=== PATIENT | female | born 1940 | race Caucasian/White ===

== ENCOUNTER 2021-09-05 11:08 | Inpatient (IN) ==
[2021-09-05] MEDS ORDERED: cefTRIAXone SODIUM 1,000 MG/50 ML BAG IV STA (11:35)
--- NOTE | 2021-09-05 11:46 | Emergency Department Note ---
Impression & Plan Acute pyelonephritis, Bacteremia ED Provider Note NAME: DOV MCCORMACK AGE: 81 SEX: F : 1940 ARRIVES VIA: Walk-In INFORMANT: Patient, ED PROVIDER(S): Eladio Mccullough DO CHIEF COMPLAINT: Flank pain HPI: The patient is a 81-year-old female who presented to the emergency department for an evaluation of flank pain. The patient was seen in our facility yesterday for similar complaints. At that time she was diagnosed with pyelonephritis. She did have an abnormal CT. She was given a dose of Rocephin in the emergency department and started on an outpatient antibiotic. She did not take the course of antibiotic yet today. She states that her symptoms have significantly improved. She did not see her family doctor for the symptoms. The patient arrived at the emergency department after she was asked to return because of a positive blood culture for gram-negative rods. The patient states that initially she started having right-sided flank pain approximately 3 to 4 days ago. She states it was constant. She denies having any hematuria. She denies having any fever or cough. She has no chest pain. The patient states that her symptoms have significantly improved at this time. She presented with her significant other. ROS: See above HPI for pertinent positives & negatives. A total of 10 systems reviewed and were otherwise negative. PAST MEDICAL HISTORY: See Below PAST SURGICAL HISTORY: See Below FAMILY HISTORY: See Below SOCIAL HISTORY: See Below HOME MEDICATIONS: See Below ALLERGIES: See Below VITALS: See Below PHYSICAL EXAMINATION: GENERAL: Patient is awake alert in no acute distress patient is resting comfortably and showing no signs of anxiety EYES: The conjunctivae are clear. The pupils are round and reactive. EARS, NOSE, MOUTH AND THROAT: The nose is without any evidence of any deformity. NECK: The neck is nontender and supple. RESPIRATORY: Normal respiratory effort is noted there is no evidence of wheezing rhonchi or rales CARDIOVASCULAR: Regular rate and rhythm noted there no murmurs rubs or gallops normal S1 normal S2. GASTROINTESTINAL: The abdomen is soft. Abdomen is nontender. BACK: No midline tenderness was noted. There was right CVA tenderness to percussion which was mild. MUSCULOSKELETAL/EXTREMITIES: There is no evidence of gross deformity full range of motion is noted in the hips and shoulders. SKIN: Skin was warm and dry. Trace pedal edema was noted bilaterally. NEUROLOGIC: Patient is awake alert and oriented x3. Gait was steady. MEDICAL DECISION MAKING: The patient is a 81-year-old female who presented to the emergency department for an evaluation of flank pain. The patient was seen in our facility yesterday for similar complaints. At that time she was diagnosed with pyelonephritis. She was treated with IV antibiotics in the emergency department. The patient was discharged to home. She was feeling much better on subsequent reevaluation but she was called to return because of urine as well as blood cultures that appeared to be consistent with gram-negative rods. The patient was asked to return the emergency department. She was not tachycardic or hypotensive. She was treated with IV fluids and IV Zosyn in the emergency department. The patient was found to have a very elevated procalcitonin. Given the patient's presentation I did feel she would be a candidate for further inpatient management given her bacteremia. The patient was agreeable with this plan. I discussed her case with the on-call urologist as well as the on-call [facility] hospitalist. They have agreed to evaluate the patient in the emergency department for further management and disposition. Triage Nursing notes reviewed. Prior medical records reviewed Vital Signs: reviewed and remarkable for no significant abnormalities Differential diagnosis: Renal colic, UTI, appendicitis, diverticulitis, mesenteric ischemia, aortic pathology, infections, inflammatory bowel disease, PUD, biliary pathology, as well as other pathologies. ER treatment provided: See below Diagnostics interpreted by me: ECG: EKG was obtained in the emergency department. My interpretation is normal sinus rhythm at 60 bpm. There was no ectopy. Anterior T wave abnormalities were noted. This was compared to a tracing from September 042021. No changes were noted. Cardiac Monitoring: An order was placed for continuous cardiac monitoring. The monitor shows a rate of 61 bpm with sinus bradycardia. Laboratory studies: As stated above and show below. Imaging studies: See below Consultation(s): I discussed this case with Dr. Louis who is on-call for urology. I discussed this case with Sherly who is on-call for the [facility] Hospitalist group. Past Med/Surg History Medical History DJD (degenerative joint disease) Hypertension Osteoarthritis Surgical History History of appendectomy History of cataract surgery LEFT History of colonoscopy History of dilatation and curettage History of endometrial ablation History of total knee replacement left Family History Other Hypertension Social History Smoking Status: Never smoker Second Hand Exposure: No; Hx Alcohol Use: No Hx Substance Use: No Preferred Language: Cook Islander Communication Ability: Effective Community Organization Director Required: No Beliefs That Will Affect Care: None Current Living Situation: Spouse Feels Safe at Home: Yes Assistive Devices: Glasses Allergies Allergies Allergy/AdvReac Type Severity Reaction Status Date / Time No Known Allergies Allergy Verified 09/05/21 12:43 Home Meds Home Medications Medication Instructions Recorded Confirmed atenolol 50 mg tablet 50 mg PO QAM 11/27/19 09/05/21 hydrochlorothiazide 25 mg tablet 25 mg PO QAM 11/27/19 09/05/21 multivit with 1 tab PO QAM 11/27/19 09/05/21 gffxizbb-gqwu-EF-lutein 8 mg iron-400 mcg-300 mcg tablet (Centrum Silver Women) amlodipine 5 mg tablet 5 mg PO QAM 07/17/21 09/05/21 benazepril 40 mg tablet 40 mg PO DAILY 09/04/21 09/05/21 Gummy Probiotics 1 tab PO DAILY 09/05/21 09/05/21 Previous Rx's Medication Instructions Recorded Saccharomyces boulardii 250 mg 250 mg PO BID #20 cap 09/04/21 capsule (Florastor) cefdinir 300 mg capsule 300 mg PO BID 14 Days #28 cap 09/04/21 ondansetron 4 mg disintegrating 4 mg PO Q6H PRN #14 tab 09/04/21 tablet Results & Data (ED) Vital Signs Vital Signs - 24 hr 09/05/21 11:12 09/05/21 12:49 09/05/21 14:40 Temperature 36.3 C L Temperature Source Temporal Artery Scan Pulse Rate 69 Pulse Rate [Apical] 56 L 61 Pulse Rhythm [Apical] Regular Pulse Strength [Apical] Normal Respiratory Rate 20 16 20 Respiratory Effort / Characteristics Non-Labored Spontaneous Non-Labored Non-Labored Spontaneous Respiratory Depth Normal Normal Normal Respiratory Pattern Regular Regular Blood Pressure 102/64 Blood Pressure [Right Arm] 124/71 110/60 Blood Pressure Mean 76 Blood Pressure Mean [Right Arm] 88 76 Blood Pressure Position [Right Arm] Sitting Pulse Oximetry 93 94 96 Oxygen Delivery Method Room Air Room Air Room Air Sepsis Recent Fever Within 48 Hours No Sepsis New/Unexplained Change in Mental Status No Sepsis Action Taken by Nursing No Action Required Home Medications Current Medication List: was personally reviewed by me Laboratory Data Attestation: I reviewed the patient's lab results. Result diagrams: 09/05/21 11:42 09/05/21 11:42 Lab Results 09/05/21 09/05/21 09/05/21 Range/Units 11:42 11:42 11:42 WBC 10.17 (4.8-10.8) K/uL RBC 3.70 L (4.2-5.4) M/uL Hgb 11.1 L (12.0-16.0) g/dL Hct 34.5 L (37-47) % MCV 93.2 (80-100) fL MCH 30.0 (25-34) pg MCHC 32.2 (32-36) g/dL RDW Std Deviation 49.4 H (36.4-46.3) fL RDW Coeff of Suleiman 14.4 (11.5-14.5) % Plt Count 214 (130-400) K/uL MPV 10.8 H (7.4-10.4) fL Immature Gran % (Auto) 0.2 % Neut % (Auto) 84.5 % Lymph % (Auto) 5.9 % Whitley % (Auto) 8.4 % Eos % (Auto) 0.9 % Baso % (Auto) 0.1 % Neut # (Auto) 8.60 H (1.4-6.5) K/uL Lymph # (Auto) 0.60 L (1.2-3.4) K/uL Whitley # (Auto) 0.85 H (0.11-0.59) K/uL Eos # (Auto) 0.09 (0-0.5) K/uL Baso # (Auto) 0.01 (0-0.2) K/uL Immature Gran # (Auto) 0.02 (0.00-0.02) K/uL ESR (0-30) mm/hr PT 10.3 (9.0-12.0) Seconds INR 1.0 (0.9-1.1) APTT 29.6 (21.0-31.0) Seconds PTT Ratio 1.1 Sodium 136 (136-145) mmol/L Potassium 3.3 L (3.5-5.1) mmol/L Chloride 100 (98-107) mmol/L Carbon Dioxide 27 (21-32) mmol/L Anion Gap 9 (3-11) BUN 46 H (6-23) mg/dl Creatinine 1.40 H (0.6-1.2) mg/dl Est Cr Clr Drug Dosing 33.1 ml/min Est GFR ( Amer) 41.3 ml/min Est GFR (Non-Af Amer) 35.6 ml/min BUN/Creatinine Ratio 32.9 H (10-20) Glucose 212 H (70-99(Fasting)) mg/dl Lactate (0.4-2.0) mmol/L Calcium 8.2 L (8.5-10.1) mg/dl Magnesium (1.7-2.4) mg/dl Total Bilirubin 0.5 (0.2-1.0) mg/dl AST 14 (13-39) U/L ALT 16 (7-52) U/L Alkaline Phosphatase 62 (34-104) U/L C-Reactive Protein 28.97 H (0-0.5) mg/dl Total Protein 7.2 (6.0-8.3) gm/dl Albumin 3.3 L (3.4-5.0) gm/dl Globulin 3.9 (2.5-4.0) gm/dl Albumin/Globulin Ratio 0.8 L (0.9-2) Procalcitonin SARS-CoV-2, RNA, NAAT (NEGATIVE) 09/05/21 09/05/21 09/05/21 Range/Units 11:42 11:42 11:42 WBC (4.8-10.8) K/uL RBC (4.2-5.4) M/uL Hgb (12.0-16.0) g/dL Hct (37-47) % MCV (80-100) fL MCH (25-34) pg MCHC (32-36) g/dL RDW Std Deviation (36.4-46.3) fL RDW Coeff of Suleiman (11.5-14.5) % Plt Count (130-400) K/uL MPV (7.4-10.4) fL Immature Gran % (Auto) % Neut % (Auto) % Lymph % (Auto) % Whitley % (Auto) % Eos % (Auto) % Baso % (Auto) % Neut # (Auto) (1.4-6.5) K/uL Lymph # (Auto) (1.2-3.4) K/uL Whitley # (Auto) (0.11-0.59) K/uL Eos # (Auto) (0-0.5) K/uL Baso # (Auto) (0-0.2) K/uL Immature Gran # (Auto) (0.00-0.02) K/uL ESR 86 H (0-30) mm/hr PT (9.0-12.0) Seconds INR (0.9-1.1) APTT (21.0-31.0) Seconds PTT Ratio Sodium (136-145) mmol/L Potassium (3.5-5.1) mmol/L Chloride (98-107) mmol/L Carbon Dioxide (21-32) mmol/L Anion Gap (3-11) BUN (6-23) mg/dl Creatinine (0.6-1.2) mg/dl Est Cr Clr Drug Dosing ml/min Est GFR ( Amer) ml/min Est GFR (Non-Af Amer) ml/min BUN/Creatinine Ratio (10-20) Glucose (70-99(Fasting)) mg/dl Lactate 1.2 (0.4-2.0) mmol/L Calcium (8.5-10.1) mg/dl Magnesium (1.7-2.4) mg/dl Total Bilirubin (0.2-1.0) mg/dl AST (13-39) U/L ALT (7-52) U/L Alkaline Phosphatase (34-104) U/L C-Reactive Protein (0-0.5) mg/dl Total Protein (6.0-8.3) gm/dl Albumin (3.4-5.0) gm/dl Globulin (2.5-4.0) gm/dl Albumin/Globulin Ratio (0.9-2) Procalcitonin Cancelled SARS-CoV-2, RNA, NAAT (NEGATIVE) 09/05/21 09/05/21 09/05/21 Range/Units 11:42 12:05 Unknown WBC (4.8-10.8) K/uL RBC (4.2-5.4) M/uL Hgb (12.0-16.0) g/dL Hct (37-47) % MCV (80-100) fL MCH (25-34) pg MCHC (32-36) g/dL RDW Std Deviation (36.4-46.3) fL RDW Coeff of Suleiman (11.5-14.5) % Plt Count (130-400) K/uL MPV (7.4-10.4) fL Immature Gran % (Auto) % Neut % (Auto) % Lymph % (Auto) % Whitley % (Auto) % Eos % (Auto) % Baso % (Auto) % Neut # (Auto) (1.4-6.5) K/uL Lymph # (Auto) (1.2-3.4) K/uL Whitley # (Auto) (0.11-0.59) K/uL Eos # (Auto) (0-0.5) K/uL Baso # (Auto) (0-0.2) K/uL Immature Gran # (Auto) (0.00-0.02) K/uL ESR (0-30) mm/hr PT (9.0-12.0) Seconds INR (0.9-1.1) APTT (21.0-31.0) Seconds PTT Ratio Sodium (136-145) mmol/L Potassium (3.5-5.1) mmol/L Chloride (98-107) mmol/L Carbon Dioxide (21-32) mmol/L Anion Gap (3-11) BUN (6-23) mg/dl Creatinine (0.6-1.2) mg/dl Est Cr Clr Drug Dosing ml/min Est GFR ( Amer) ml/min Est GFR (Non-Af Amer) ml/min BUN/Creatinine Ratio (10-20) Glucose (70-99(Fasting)) mg/dl Lactate (0.4-2.0) mmol/L Calcium (8.5-10.1) mg/dl Magnesium 2.4 (1.7-2.4) mg/dl Total Bilirubin (0.2-1.0) mg/dl AST (13-39) U/L ALT (7-52) U/L Alkaline Phosphatase (34-104) U/L C-Reactive Protein (0-0.5) mg/dl Total Protein (6.0-8.3) gm/dl Albumin (3.4-5.0) gm/dl Globulin (2.5-4.0) gm/dl Albumin/Globulin Ratio (0.9-2) Procalcitonin 74.35 H SARS-CoV-2, RNA, NAAT NEGATIVE (NEGATIVE) Administered Medications Discontinued Medications Ceftriaxone Sodium (Rocephin) 1,000 mg in 50 mls @ 100 mls/hr IV NOW STA Stop: 09/05/21 12:04 Last Infusion: 09/05/21 12:30 Dose: 0 mls/hr Documented by: [id number] Admin: 09/05/21 12:05 Dose: 100 mls/hr Documented by: [id number] Piperacillin Sod/Tazobactam Sod (Zosyn) 4.5 gm in 120 mls @ 240 mls/hr IV NOW ONE Stop: 09/05/21 13:16 Last Infusion: 09/05/21 13:24 Dose: 0 mls/hr Documented by: [id number] Admin: 09/05/21 12:54 Dose: 240 mls/hr Documented by: [id number] Potassium Chloride (Potassium Chloride Crtab 20 Meq Tabcr) 20 meq PO NOW STA Stop: 09/05/21 13:47 Last Admin: 09/05/21 14:08 Dose: 20 meq Documented by: [id number] Discharge Plan Visit Data Chief Complaint: Abnormal Labs/Diagnostic Testing Stated Complaint: ABNORMAL LABS ED Provider: Eladio Mccullough Discharge Problem: Acute pyelonephritis, Bacteremia Patient Disposition: Being Evaluated by Hospitalist Forms Stand Alone Forms: My [facility] Prescriptions Prescriptions: No Action hydrochlorothiazide 25 mg tablet 25 mg PO QAM RF: 0 atenolol 50 mg tablet 50 mg PO QAM RF: 0 Centrum Silver Women 8 mg iron-400 mcg-300 mcg Tablet 1 tab PO QAM RF: 0 ondansetron 4 mg tablet,disintegrating 4 mg PO Q6H PRN (Reason: nausea and vomiting) Qty: 14 RF: 0 cefdinir 300 mg capsule 300 mg PO BID 14 Days Qty: 28 RF: 0 Saccharomyces boulardii [Florastor] 250 mg capsule 250 mg PO BID Qty: 20 RF: 0 benazepril 40 mg tablet 40 mg PO DAILY RF: 0 amlodipine 5 mg Tablet 5 mg PO QAM RF: 0 Gummy Probiotics 1 tab PO DAILY RF: 0 Referrals Referrals: Jose L Fuller DO [Primary Care Provider] -
[2021-09-05 11:52] LABS: Hematocrit (blood only) 34.5 % (37-47); Hemoglobin 11.1 g/dL (12.0-16.0); Mean Corpuscular Hgb Conc 32.2 g/dL (32-36); Mean Corpuscular Volume 93.2 fL (80-100); Mean Platelet Volume 10.8 fL (7.4-10.4); Platelet Count 214 K/uL (130-400); RDW Coefficient of Variation 14.4 % (11.5-14.5); RDW Standard Deviation 49.4 fL (36.4-46.3); White Blood Count 10.17 K/uL (4.8-10.8)
[2021-09-05 12:05] LABS: Partial Thromboplastin Ratio 1.1; Partial Thromboplastin Time 29.6 Seconds (21.0-31.0); Prothrombin Time 10.3 Seconds (9.0-12.0)
[2021-09-05 12:13] LABS: Albumin Globulin Ratio 0.8 (0.9-2); Albumin Level 3.3 gm/dl (3.4-5.0); BUN Creatinine Ratio 32.9 (10-20); Bilirubin,Total 0.5 mg/dl (0.2-1.0); C Reactive Protein 28.97 mg/dl (0-0.5); Calcium 8.2 mg/dl (8.5-10.1); Creatinine Clr Calc Pharmacy 33.1 ml/min; Est GFR (African American) 41.3 ml/min; Est GFR (Non-African American) 35.6 ml/min; Globulin 3.9 gm/dl (2.5-4.0); Potassium 3.3 mmol/L (3.5-5.1); Total Protein 7.2 gm/dl (6.0-8.3)
[2021-09-05 12:14] LABS: Basophils # (auto) 0.01 K/uL (0-0.2); Basophils % (auto) 0.1 %; Eosinophils # (auto) 0.09 K/uL (0-0.5); Eosinophils % (auto) 0.9 %; Immature Granulocytes # (auto) 0.02 K/uL (0.00-0.02); Immature Granulocytes % (auto) 0.2 %; Lymphocytes % (auto) 5.9 %; Monocytes # (auto) 0.85 K/uL (0.11-0.59); Monocytes % (auto) 8.4 %; Neutrophils % (auto) 84.5 %
[2021-09-05] MEDS ORDERED: PIPERACILLIN/TAZOBACTAM 4.5 GM/120 ML BAG IV ONE (12:47)
[2021-09-05] MEDS ORDERED: PIPERACILL/TAZOBAC CONSULT ACTIVE PRN (12:47)
--- NOTE | 2021-09-05 13:01 | History & Physical Report ---
Date of Service September 05, 2021 Assessment & Plan (1) Bacteremia: (2) Acute pyelonephritis: Plan: Patient is 81-year-old female with PMH HTN presented to ER today for positive blood cultures- preliminary results of gram negative bacilli. Right flank pain started 4 days ago with chills, dysuria. Seen in ER 09/04/[address] abdomen pelvis which showed possible hemorrhagic cyst rupture versus pyelonephritis and had UA suggestive of UTI. Patient was treated with Rocephin and discharged on cefdinir for probable pyelonephritis. Took 2 doses of cefdinir. Today in ER afebrile, vitals stable. No leukocytosis. Lactate WNL. CRP, ESR, procalcitonin elevated. Preliminary urine culture - gram negative bacilli In ER given Rocephin, Zosyn Continue Zosyn Repeat blood cultures Follow urine culture CBC, BMP in am (3) BABS (acute kidney injury): Plan: BUN: 46, Cr: 1.4. Baseline Cr: 1.0 IVF Hold benazepril, HCTZ and avoid other nephrotoxic agents when possible (4) Hypokalemia: Plan: K: 3.3 Replace and monitor (5) Abnormal CT of the abdomen: Plan: 09/04/21 CT ABD/PELVIS: 1. Mild right perinephric stranding. 3.5 x 2.2 x 1.1 cm crescentic intermediate attenuation focus along the lateral aspect of the superior pole of the right kidney which may be subcapsular. Adjacent intermediate attenuation 2.8 cm upper pole lesion. These are nonspecific but could reflect hemorrhagic cysts with possible cyst rupture. This could account for right flank pain. However, given apparent urothelial thickening, pyelonephritis and pyelitis are within the differential and correlation with urinalysis is recommended. In addition, a renal protocol CT in 3 months is recommended to exclude the less likely possibility of a solid renal lesion. 2. 2.2 cm left adrenal lesion. This is indeterminate although statistically benign and can be assessed on follow-up CT. 3. Several small left renal calculi. No ureteral calculi. No hydronephrosis. Consistent with acute pyelonephritis with symptoms, +blood cultures and CT scan Will need repeat CT abd/pelvis to r/o right renal lesion and recheck left adrenal lesion, as well as outpatient urology follow up (6) Hypertension: Plan: Stable Continue amlodipine, atenolol Hold benazepril, HCTZ DVT Prophylaxis Heparin SQ Full Code as per discussion with pt Follows with Dr Jose L Fuller for routine care Pt was seen and care coordinated with Dr Neal. See addendum History of Present Illness Chief Complaint: Abnormal labs Primary Care Provider: Jose L Fuller DO Patient is 81-year-old female with PMH HTN presented to ER today for recall for abnormal labs. Patient was seen in ER yesterday 09/04/2021 for right flank pain. Had CT abdomen pelvis which showed possible hemorrhagic cyst rupture versus pyelonephritis versus pyelitis and had UA suggestive of UTI. Patient was treated with Rocephin and discharged on cefdinir. Took 2 doses of cefdinir. Did not have dose today yet. Today her preliminary blood cultures positive for gram negative bacilli and was called by ER to return. Patient states 4 days ago woke up with right flank pain that was described as sharp. She also reports had slight dysuria and felt like she was not emptying her bladder completely. Maddi ent complains of shaking chills, did not take her temperature. She started taking [id number]-fjlukwy AZO and reports symptoms slightly improved. Yesterday had aching right flank pain and shaking chills again and was seen in ER. Patient states today she was feeling better, has slight right flank discomfort. She was able to complete her daily chores at the barn this morning. Patient reports 2 weeks ago had URI symptoms with congestion, cough. She reports still has slight lingering cough. Denies any shortness of breath, chest pain. Denies any known COVID-19 exposure. Has not received COVID-19 vaccination. Denies N/V/D/C, NAILS, dizziness, syncope, vision changes, neck pain, orthopnea, palpitations, sore throat, choking, otalgia, other abdominal pain, paresthesias, weakness, extremity weakness, extremity edema, rashes, hematuria, urinary frequency. Allergies Allergy/AdvReac Type Severity Reaction Status Date / Time No Known Allergies Allergy Verified 09/05/21 12:43 Home Medications Medication Instructions Recorded Confirmed Type atenolol 50 mg tablet 50 mg PO QAM 11/27/19 09/05/21 History hydrochlorothiazide 25 mg tablet 25 mg PO QAM 11/27/19 09/05/21 History multivit with 1 tab PO QAM 11/27/19 09/05/21 History pmtskego-ypgk-BS-lutein 8 mg iron-400 mcg-300 mcg tablet (Centrum Silver Women) amlodipine 5 mg tablet 5 mg PO QAM 07/17/21 09/05/21 History Saccharomyces boulardii 250 mg 250 mg PO BID #20 cap 09/04/21 09/05/21 Rx capsule (Florastor) benazepril 40 mg tablet 40 mg PO DAILY 09/04/21 09/05/21 History cefdinir 300 mg capsule 300 mg PO BID 14 Days #28 cap 09/04/21 09/05/21 Rx ondansetron 4 mg disintegrating 4 mg PO Q6H PRN #14 tab 09/04/21 09/05/21 Rx tablet Gummy Probiotics 1 tab PO DAILY 09/05/21 09/05/21 History Past Med/Surg History Medical History DJD (degenerative joint disease) Hypertension Osteoarthritis Surgical History History of appendectomy History of cataract surgery LEFT History of colonoscopy History of dilatation and curettage History of endometrial ablation History of total knee replacement left Family History Other Hypertension Social History Smoking Status: Never smoker Second Hand Exposure: No; Hx Alcohol Use: No Hx Substance Use: No Preferred Language: Slovenian Communication Ability: Effective Solid Waste Facility Operator Required: No Beliefs That Will Affect Care: Scientology Scientology Beliefs: yazidi Current Living Situation: Spouse Other Information That Helps Us Care for You: No Feels Safe at Home: Yes Safety Concerns: Feels Safe At This Time Assistive Devices: None Review of Systems Review of Systems: All systems reviewed & are unremarkable except as noted in HPI & below Physical Exam Physical Exam: General: no distress, WDWN Head: normocephalic, atraumatic Eyes: PERRL, EOM's intact, conjunctiva non-injected, anicteric ENT: normal inspection external ears, nose, mucous membranes moist Neck: supple, trachea midline Lungs: clear, no respiratory distress, no wheezing/rhonchi/rales CV: RRR, no murmur, no pretibial edema Abd: normal BS, soft, non-tender, no CVA tenderness to palpation Ext: no cyanosis, no calf tenderness Neuro: A&O x 3, no focal deficits noted, normal affect Skin: warm, dry Results & Data Results & Data ([facility]) Vital Signs (Past 12 Hours) Vital Signs Temp Pulse Pulse Resp BP BP Pulse Ox 09/05/21 12:49 56 L 16 124/71 94 09/05/21 11:12 36.3 C L 69 20 102/64 93 Laboratory Results Short CBC 09/05/21 Range/Units 11:42 WBC 10.17 (4.8-10.8) K/uL Hgb 11.1 L (12.0-16.0) g/dL Hct 34.5 L (37-47) % Plt Count 214 (130-400) K/uL BMP 09/05/21 11:42 Sodium 136 Potassium 3.3 L Chloride 100 Carbon Dioxide 27 BUN 46 H Creatinine 1.40 H Glucose 212 H Calcium 8.2 L Liver Function 09/05/21 Range/Units 11:42 Total Bilirubin 0.5 (0.2-1.0) mg/dl AST 14 (13-39) U/L ALT 16 (7-52) U/L Alkaline Phosphatase 62 (34-104) U/L Albumin 3.3 L (3.4-5.0) gm/dl Supervising Physician Co-Signing Physician Notes I have seen and examined the patient and have discussed the case with the provider above. I agree with the assessment and plan as stated. 81 yo F who is well appearing was called back to the hospital for positive blood cultures. She presented to the ER yesterday with 4 days of R flank pain and chills and was found to have acute pyelonephritis. She was treated with IV Rocephin and sent home on cefdinir. Today she is well appearing but has persistent Right flank pain. She is reporting chronic bladder prolapse to me and no dysuria or urgency symptoms at this time. She is afebrile with no evidence of sepsis. Procalcitonin and CRP are increased today and she has a normal WBC count. No repeat imaging is felt to be needed at this time. She is being treated initially with Zosyn which will narrow with culture speciation and clinical im provement. My physical exam is as above, notably her abdomen is soft, NTND and ther eis no suprapubic discomfort with palpation. She also has no R CVA tenderness to palpation. Repeat blood cultures were drawn today and would continue to check every other day until they are clear. Consider prolonged course of antibiotics and/or infectious disease consultation. Agree with holding ACEI in BABS, giving fluids and repeating BMP in am. Ángel, DO
[2021-09-05] MEDS ORDERED: POTASSIUM CHLORIDE CRTAB 20 MEQ TABCR PO STA (13:46)
[2021-09-05] MEDS ORDERED: ACETAMINOPHEN 325 MG TAB PO PRN (16:12)
[2021-09-05] MEDS ORDERED: POLYETHYLENE (MIRALAX) 17 GM PACK PO PRN (16:12)
[2021-09-05] MEDS ORDERED: ONDANSETRON INJ 2 MG/ML 2 ML VIAL IV PRN (16:12)
[2021-09-05] MEDS: SODIUM CHLORIDE 0.9% 1000ML 1,000 ML IV SCH (16:42)
[2021-09-05] MEDS: PIPERACILLIN/TAZOBACTAM 3.375 GM in DEXTROSE 5% 100 ML IV SCH (18:42)
[2021-09-05] MEDS ORDERED: POTASSIUM CHLORIDE CRTAB 20 MEQ TABCR PO ONE (21:00)
[2021-09-05 21:12] LABS: Appearance Urine Clear (Clear); Bacteria Urine Automated Negative (Negative); Bilirubin Urine Negative (Negative); Blood Urine Trace (Negative); Color Urine Yellow; Epithelial Cell Urine Auto 20-30 /lpf (0-5); Glucose Urine UA Negative (Negative); Ketones Urine Negative (Negative); Leukocyte Esterase Urine Negative (Negative); Nitrite Urine Negative (Negative); Protein Urine 1+ (Negative); Specific Gravity Urine 1.016 (1.000-1.030); Urobilinogen Urine Negative (Negative); pH Urine 6.5 (4.5-7.5)
[2021-09-05] MEDS: SACCHAROMYCES BOULARDII 250 MG CAP PO SCH (22:35)
[2021-09-05] MEDS: HEPARIN SOD 5,000 UNIT/0.5 ML VIAL SQ SCH (22:37)
[2021-09-06] MEDS: PIPERACILLIN/TAZOBACTAM 3.375 GM in DEXTROSE 5% 100 ML IV SCH ×2 (02:38→10:36)
[2021-09-06] MEDS: SODIUM CHLORIDE 0.9% 1000ML 1,000 ML IV SCH (04:16)
--- NOTE | 2021-09-06 06:59 | Electrocardiogram Report ---
Test Reason : Blood Pressure : / mmHG Vent. Rate : 060 BPM Atrial Rate : 060 BPM P-R Int : 160 ms QRS Dur : 090 ms QT Int : 422 ms P-R-T Axes : 047 009 029 degrees QTc Int : 422 ms Normal sinus rhythm Normal ECG When compared with ECG of 04-SEP-2021 08:25, Vent. rate has decreased BY 30 BPM Questionable change in QRS axis T wave amplitude has increased in Lateral leads Confirmed by Maksim Romano ([id number]) on 09/06/2021 6:59:19 AM Referred By: REFERRED SELF Confirmed By:Maksim Romano
[2021-09-06] MEDS: amLODIPine BESYLATE 5 MG TAB PO SCH (09:15)
[2021-09-06] MEDS: SACCHAROMYCES BOULARDII 250 MG CAP PO SCH ×2 (09:15→22:02)
[2021-09-06] MEDS: HEPARIN SOD 5,000 UNIT/0.5 ML VIAL SQ SCH ×2 (09:21→22:02)
[2021-09-06 09:53] LABS: Hematocrit (blood only) 36.1 % (37-47); Hemoglobin 11.6 g/dL (12.0-16.0); Mean Corpuscular Hemoglobin 30.1 pg (25-34); Mean Corpuscular Hgb Conc 32.1 g/dL (32-36); Mean Corpuscular Volume 93.8 fL (80-100); Mean Platelet Volume 10.8 fL (7.4-10.4); Platelet Count 226 K/uL (130-400); RDW Coefficient of Variation 14.7 % (11.5-14.5); RDW Standard Deviation 50.7 fL (36.4-46.3); Red Blood Count 3.85 M/uL (4.2-5.4); White Blood Count 8.31 K/uL (4.8-10.8)
[2021-09-06 11:05] LABS: BUN Creatinine Ratio 27.9 (10-20); Calcium 8.3 mg/dl (8.5-10.1); Est GFR (African American) 59.2 ml/min; Est GFR (Non-African American) 51.1 ml/min
[2021-09-06] MEDS: ATENOLOL 50 MG TABLET PO SCH (12:08)
[2021-09-06] MEDS: MULTIVITAMIN TAB PO SCH (12:08)
[2021-09-06] MEDS ORDERED: cefTRIAXone SODIUM 2,000 MG in DEXTROSE 5% 50 ML IV SCH (18:00)
--- NOTE | 2021-09-06 23:54 | Hospitalist Progress Note ---
Date of Service September 06, 2021 Assessment & Plan (1) Bacteremia: (2) Acute pyelonephritis: Plan: Patient is 81-year-old female with PMH HTN presented to ER today for positive blood cultures- preliminary results of gram negative bacilli. Right flank pain started 4 days ago with chills, dysuria. Seen in ER 09/04/[address] abdomen pelvis which showed possible hemorrhagic cyst rupture versus pyelonephritis and had UA suggestive of UTI. Patient was treated with Rocephin and discharged on cefdinir for probable pyelonephritis. Took 2 doses of cefdinir. Elevated CRP, ESR, procalcitonin elevated. Blood cx and urine cx on 09/04- gram negative bacilli In ER given Rocephin, Zosyn on admission Repeat blood cx pending Continue Zosyn Clinically stable (3) BABS (acute kidney injury): Plan: BUN: 46, Cr: 1.4. Baseline Cr: 1.0 IVF Hold benazepril, HCTZ and avoid other nephrotoxic agents when possible (4) Hypokalemia: Plan: K: 3.3 Replace and monitor (5) Abnormal CT of the abdomen: Plan: 09/04/21 CT ABD/PELVIS: 1. Mild right perinephric stranding. 3.5 x 2.2 x 1.1 cm crescentic intermediate attenuation focus along the lateral aspect of the superior pole of the right kidney which may be subcapsular. Adjacent intermediate attenuation 2.8 cm upper pole lesion. These are nonspecific but could reflect hemorrhagic cysts with possible cyst rupture. This could account for right flank pain. However, given apparent urothelial thickening, pyelonephritis and pyelitis are within the differential and correlation with urinalysis is recommended. In addition, a renal protocol CT in 3 months is recommended to exclude the less likely possibility of a solid renal lesion. 2. 2.2 cm left adrenal lesion. This is indeterminate although statistically benign and can be assessed on follow-up CT. 3. Several small left renal calculi. No ureteral calculi. No hydronephrosis. Consistent with acute pyelonephritis with symptoms, +blood cultures and CT scan Will need repeat CT abd/pelvis to r/o right renal lesion and recheck left adrenal lesion, as well as outpatient urology follow up (6) Hypertension: Plan: Stable Continue amlodipine, atenolol Hold benazepril, HCTZ DVT Prophylaxis Heparin SQ Full Code Follows with Dr Jose L Fuller for routine care Admission and Anticipated Discharge Date Admission Date: September 05, 2021 Subjective Pt was seen and examined for follow up of positive blood cx Lying in bed with no acute distress Pt said that she feels fine She is very anxious to go home Denies any chest pain, palpitation, dizziness and SOB Review of Systems Review of Systems: All systems reviewed & are unremarkable except as noted in HPI & below Physical Exam Physical Exam: General- No acute distress Head- atraumatic Eyes- PERRL, EOMI, ENT- oropharynx clear Neck- supple, no JVD Lungs- clear to auscultation Heart- regular rhythm; no murmur Abdomen- normal bowel sounds, soft, nontender Extremities- no calf tenderness Neuro- alert, oriented x 3; PERRL, EOMI; no facial palsy; no dysarthria Skin- warm & dry Results & Data Results & Data ([facility]) Vital Signs (Past 12 Hours) Vital Signs Temp Pulse Pulse Resp BP BP Pulse Ox 09/06/21 23:00 37 C 73 20 110/49 L 93 09/06/21 18:38 37.1 C 75 20 107/64 90 09/06/21 15:27 37.6 C H 69 20 120/64 90 09/06/21 14:20 72 09/06/21 12:14 36.9 C 67 20 124/68 93
[2021-09-07] MEDS: ATENOLOL 50 MG TABLET PO SCH (07:51)
[2021-09-07] MEDS: MULTIVITAMIN TAB PO SCH (07:52)
[2021-09-07] MEDS: HEPARIN SOD 5,000 UNIT/0.5 ML VIAL SQ SCH (07:52)
[2021-09-07] MEDS: amLODIPine BESYLATE 5 MG TAB PO SCH (07:52)
[2021-09-07] MEDS: SACCHAROMYCES BOULARDII 250 MG CAP PO SCH (07:53)
[2021-09-07] MEDS ORDERED: levoFLOXacin 750 MG TAB PO SCH (16:00)
--- NOTE | 2021-09-17 00:13 | Discharge Summary ---
Date of Service September 07, 2021 Admission HPI Per Admitting Provider Patient is 81-year-old female with PMH HTN presented to ER today for recall for abnormal labs. Patient was seen in ER yesterday 09/04/2021 for right flank pain. Had CT abdomen pelvis which showed possible hemorrhagic cyst rupture versus pyelonephritis versus pyelitis and had UA suggestive of UTI. Patient was treated with Rocephin and discharged on cefdinir. Took 2 doses of cefdinir. Did not have dose today yet. Today her preliminary blood cultures positive for gram negative bacilli and was called by ER to return. Patient states 4 days ago woke up with right flank pain that was described as sharp. She also reports had slight dysuria and felt like she was not emptying her bladder completely. Patient complains of shaking chills, did not take her temperature. She started taking [id number] AZO and reports symptoms slightly improved. Yesterday had aching right flank pain and shaking chills again and was seen in ER. Patient states today she was feeling better, has slight right flank discomfort. She was able to complete her daily chores at the barn this morning. Patient reports 2 weeks ago had URI symptoms with congestion, cough. She reports still has slight lingering cough. Denies any shortness of breath, chest pain. Denies any known COVID-19 exposure. Has not received COVID-19 vaccination. Denies N/V/D/C, NAILS, dizziness, syncope, vision changes, neck pain, orthopnea, palpitations, sore throat, choking, otalgia, other abdominal pain, paresthesias, weakness, extremity weakness, extremity edema, rashes, hematuria, urinary frequency. Admission Exam Per Admitting Provider General: no distress, WDWN Head: normocephalic, atraumatic Eyes: PERRL, EOM's intact, conjunctiva non-injected, anicteric ENT: normal inspection external ears, nose, mucous membranes moist Neck: supple, trachea midline Lungs: clear, no respiratory distress, no wheezing/rhonchi/rales CV: RRR, no murmur, no pretibial edema Abd: normal BS, soft, non-tender, no CVA tenderness to palpation Ext: no cyanosis, no calf tenderness Neuro: A&O x 3, no focal deficits noted, normal affect Skin: warm, dry Principal Diagnosis (1) Bacteremia: (2) Acute pyelonephritis: (3)BABS (acute kidney injury): (4) Hypokalemia: Discharge Exam General- No acute distress Head- atraumatic Eyes- PERRL, EOMI, ENT- oropharynx clear Neck- supple, no JVD Lungs- clear to auscultation Heart- regular rhythm; no murmur Abdomen- normal bowel sounds, soft, nontender Extremities- no calf tenderness Neuro- alert, oriented x 3; PERRL, EOMI; no facial palsy; no dysarthria Skin- warm & dry Discharge Data Allergies Allergy/AdvReac Type Severity Reaction Status Date / Time No Known Allergies Allergy Verified 09/05/21 12:43 Consultations 09/05/21 12:46 ED Decision to Admit Stat Hospital Course (1) Bacteremia: (2) Acute pyelonephritis: Patient is 81-year-old female with PMH HTN presented to ER today for positive blood cultures- preliminary results of gram negative bacilli. Right flank pain started 4 days ago with chills, dysuria. Seen in ER 09/04/[address] abdomen pelvis which showed possible hemorrhagic cyst rupture versus pyelonephritis and had UA suggestive of UTI. Patient was treated with Rocephin and discharged on cefdinir for probable pyelonephritis. Took 2 doses of cefdinir. Elevated CRP, ESR, procalcitonin elevated. Blood cx and urine cx on 09/04- gram negative bacilli- Ecoli In ER given Rocephin, Zosyn on admission Repeat blood cx no growth Currently on IV Zosyn, will transition to Levaquin q48H You will need a renal CT in 3 month to assess for any lesion ( your provider will order it) Complete the course of the antibiotic with Levaquin every 48 hr Seek medical attention if symptoms reoccur (3) BABS (acute kidney injury): BUN: 46, Cr: 1.4. Baseline Cr: 1.0 Check BMP in 1 week to monitor your electrolytes and renal function avoid other nephrotoxic agents when possible (4) Hypokalemia: K 4 Stable (5) Abnormal CT of the abdomen: 09/04/21 CT ABD/PELVIS: 1. Mild right perinephric stranding. 3.5 x 2.2 x 1.1 cm crescentic intermediate attenuation focus along the lateral aspect of the superior pole of the right kidney which may be subcapsular. Adjacent intermediate attenuation 2.8 cm upper pole lesion. These are nonspecific but could reflect hemorrhagic cysts with possible cyst rupture. This could account for right flank pain. However, given apparent urothelial thickening, pyelonephritis and pyelitis are within the differential and correlation with urinalysis is recommended. In addition, a renal protocol CT in 3 months is recommended to exclude the less likely possibility of a solid renal lesion. 2. 2.2 cm left adrenal lesion. This is indeterminate although statistically benign and can be assessed on follow-up CT. 3. Several small left renal calculi. No ureteral calculi. No hydronephrosis. Consistent with acute pyelonephritis with symptoms, +blood cultures and CT scan Will need repeat CT abd/pelvis to r/o right renal lesion and recheck left adrenal lesion, as well as outpatient urology follow up (6) Hypertension: Stable Continue amlodipine, atenolol Hold benazepril, HCTZ DVT Prophylaxis Heparin SQ Full Code Follows with Dr Jose L Fuller for routine care Total Time Total Time Spent Total Time Spent (In Minutes): 35 minutes Discharge Plan Discharge Items Patient Disposition: Home - Self-Care Reason For Visit: BACTEREMIA Discharge Diagnosis: (1) Bacteremia: (2) Acute pyelonephritis: (3)BABS (acute kidney injury): (4) Hypokalemia: Activity: Resume your previous activity Non-emergency contact: Primary Care Provider and Urologist Call non-emergency contact if: your temperature is above 101 Follow-up/Referrals: Jose L Fuller, DO [Primary Care Provider] - Diet: Heart Healthy Addtl Attending Provider Instructions: Follow up with your primary care provider within 1 week ( Office will call you) Follow up with urology as an outpatient You will need a renal CT in 3 month to assess for any lesion ( your provider will order it) Complete the course of the antibiotic with Levaquin every 48 hr Check BMP in 1 week to monitor your electrolytes and renal function Seek medical attention if symptoms reoccur fall precaution Pending Studies at Discharge: No Stand-Alone Forms: My [employer], Smoking Cessation Medications and DC Order Prescriptions: New levofloxacin 750 mg Tablet 750 mg PO Q2D@1100 Qty: 5 RF: 0 Continued hydrochlorothiazide 25 mg tablet 25 mg PO QAM RF: 0 atenolol 50 mg tablet 50 mg PO QAM RF: 0 Centrum Silver Women 8 mg iron-400 mcg-300 mcg Tablet 1 tab PO QAM RF: 0 Saccharomyces boulardii [Florastor] 250 mg capsule 250 mg PO BID Qty: 20 RF: 0 benazepril 40 mg tablet 40 mg PO DAILY RF: 0 amlodipine 5 mg Tablet 5 mg PO QAM RF: 0 Gummy Probiotics 1 tab PO DAILY RF: 0 Discontinued ondansetron 4 mg tablet,disintegrating 4 mg PO Q6H PRN (Reason: nausea and vomiting) Qty: 14 RF: 0 cefdinir 300 mg capsule 300 mg PO BID 14 Days Qty: 28 RF: 0 Discharge Orders: Discharge Order (Routine); Ordered 09/07/21 Ordered By: Asha Hardwick Admission Data Admit Date/Time: 09/05/21 13:06 Attending Provider: Asha Hardwick Admit Provider: [place] Neal Primary Care Provider: Jose L Fuller Other Providers: [place] Neal Other Interventions: Discharge Summary Assessment (RN) Last Done: 09/07/21 14:12
== END 2021-09-07 16:44 | disposition home or self-care (01) | DRG 872 ==
LOC: ED 11:08 → SUATTDRO 13:06 → EDINP 13:06 → 2W 20:12

== ENCOUNTER 2022-12-15 15:10 | Inpatient (IN) ==
[2022-12-15 15:58] LABS: Basophils # (auto) 0.03 K/uL (0-0.2); Basophils % (auto) 0.5 %; Eosinophils # (auto) 0.14 K/uL (0-0.50); Eosinophils % (auto) 2.4 %; Hematocrit (blood only) 37.1 % (37.0-47.0); Immature Granulocytes # (auto) 0.02 K/uL (0.01-0.20); Immature Granulocytes % (auto) 0.3 %; Lymphocytes # (auto) 1.26 K/uL (1.2-3.4); Lymphocytes % (auto) 21.5 %; Mean Corpuscular Hemoglobin 29.4 pg (25.0-34.0); Mean Corpuscular Hgb Conc 32.3 g/dL (32.0-36.0); Mean Corpuscular Volume 90.9 fL (80.0-100.0); Mean Platelet Volume 10.8 fL (9.4-12.4); Monocytes # (auto) 0.67 K/uL (0.11-0.59); Monocytes % (auto) 11.4 %; Neutrophils # (auto) 3.75 K/uL (1.40-6.50); Neutrophils % (auto) 63.9 %; Platelet Count 281 K/uL (130-400); Red Blood Count 4.08 M/uL (4.20-5.40); White Blood Count 5.87 K/ul (4.8-10.8)
[2022-12-15 16:40] LABS: Albumin Level 3.8 gm/dl (3.4-5.0); Bilirubin,Total 0.3 mg/dl (0.2-1.0); Calcium 9.3 mg/dl (8.6-10.3); Potassium 3.9 mmol/L (3.5-5.1)
[2022-12-15 16:46] LABS: BUN Creatinine Ratio 40.2 (10-20); Creatinine Clr Calc Pharmacy 46.6 ml/min; Est GFR (African American) 68.2 ml/min; Est GFR (Non-African American) 58.8 ml/min; Globulin 3.7 gm/dl (2.5-4.0); Total Protein 7.5 gm/dl (6.0-8.3)
[2022-12-15] MEDS ORDERED: AMPICILLIN/SULBACTAM SOD 3,000 MG in 0.9 % SODIUM CHLORIDE 100 ML IV STA (19:04)
[2022-12-15] MEDS ORDERED: AZITHROMYCIN 500 MG in DEXTROSE 5% 250 ML IV STA (19:04)
[2022-12-15] MEDS ORDERED: OPTIRAY 320 100ml IV ONE (20:14)
--- NOTE | 2022-12-15 21:32 | CT Scan Report ---
Exam(s): CT NECK With Contrast IV Amt: 89 ml optiray 320 EXAM: CT Neck With Intravenous Contrast CLINICAL HISTORY: Reason for exam: supporitive R lymphadenopathy. TECHNIQUE: Axial computed tomography images of the neck with intravenous contrast. Automated exposure control was utilized for the study. A dose lowering technique was utilized adhering to the principles of ALARA. CONTRAST: Patient received 89 ml optiray 320 of IV contrast COMPARISON: No relevant prior studies available. FINDINGS: Oropharynx: Unremarkable. No significant tonsillar enlargement. No peritonsillar abscess. Hypopharynx: Unremarkable. Larynx: Unremarkable. Normal epiglottis. Trachea: Unremarkable. Retropharyngeal space: Unremarkable. Submandibular/parotid glands: Unremarkable. Glands are normal in size. Thyroid: Heterogeneous thyroid gland without a focal nodule measuring larger than a centimeter. Bones/joints: No acute fracture. Soft tissues: Unremarkable. Vasculature: No acute findings. Lymph nodes: There are at least 2 solid right posterior cervical chain masses measuring 3.0 x 2.0 cm at the C2 level and 3.0 x 1.5 cm at the C3 level. These findings are concerning for malignancy until proven otherwise. Numerous abnormal low density lymph nodes are present at level 2 and level 3. Additional mildly enlarged solid lymphadenopathy is present measuring up to 1.4 cm at level 2. Lung apices: Unremarkable as visualized. IMPRESSION: 2 solid right posterior cervical chain masses with cervical low density lymph nodes concerning for a primary malignancy with lymph node involvement. Electronically signed by: Rober Kilgore M.D. 12/15/22 21:31 PM
--- NOTE | 2022-12-15 22:29 | History and Physical Report ---
DATE OF ADMISSION: 12/15/2022. CHIEF COMPLAINT: Suppurative right cervical lymph nodes, cat-scratch disease. HISTORY OF PRESENT ILLNESS: This is an 82-year-old female with past medical history significant for hyperlipidemia, hypertension, rectocele, left hydronephrosis, chronic kidney disease stage III, who presents with right-sided cervical lymphadenopathy. The patient had a barn cat scratch her around 11/09/2022 night and she went to PCP. She was treated with a 10-day course of Augmentin. Initially it was a very big pus draining wound, that resolved. Then last Wednesday, she developed a tender neck mass in the right neck region below the ear, it was big, and she went to PCP's office and was given on the first day was given higher dose of Augmentin, but next day she was changed to azithromycin and CT scan of the neck was done and also peripheral smear was done. Peripheral smear was okay and the CT scan of the neck with contrast was showing extensive right anterior, posterior cervical chain lymphadenopathy with suppurative formation large sergio conglomerate within the ipsilateral level IIB, III, and V neck, involvement of some surrounding structures(some critical) and mass effect was seen. The CAT scan was evaluated by the ENT and advised to come to the hospital for possible drainage and also for ID consult. The patient says she has one more day of azithromycin left and the swelling is much reduced since last Wednesday. Currently she has some minimal tenderness. Denies any difficulty swallowing. No fevers, no chest pain, no shortness of breath, no cough, no nausea, no abdominal pain. Normal bowel and bladder movements. No headache, no blurred visions, no runny nose, no sore throat. Currently, resting comfortably and hemodynamically stable. ALLERGIES: No known drug allergies. PAST MEDICAL HISTORY: As mentioned above. PAST SURGICAL HISTORY: Left knee arthroplasty, closure of vagina, colonoscopy, cystoscopy, left knee arthroscopy, appendectomy. MEDICATIONS: The patient is currently on amlodipine 5 mg p.o. daily, atenolol 50 mg p.o. daily, benazepril 40 mg p.o. daily, Centrum Silver 1 tablet p.o. daily, hydrochlorothiazide 25 mg p.o. daily, rosuvastatin 20 mg p.o. daily, Florastor 250 mg p.o. b.i.d. FAMILY HISTORY: Significant for no family history on file. SOCIAL HISTORY: Currently lives with her and son. No smoking, no alcohol, no drug use. REVIEW OF SYSTEMS: As per HPI. Rest of the review of systems is negative. PHYSICAL EXAMINATION: GENERAL: The patient is of moderate build, not in acute distress. VITAL SIGNS: Temperature 36.8, pulse 55, respiratory rate 19, blood pressure 145/75, oxygen 98% on room air. HEENT: Pupils equal, round and reactive to light. Oral mucosa moist. NECK: Palpable mass in the right side of the neck below the ear and mild tenderness. Neck is supple. CARDIOVASCULAR: S1 and S2 heard. Regular rate and rhythm. No murmur, no gallop. RESPIRATORY SYSTEM: Normal AP diameter. No accessory muscle use. No wheezing, no crackles. ABDOMEN: Soft, bowel sounds present, nontender, no distention. CENTRAL NERVOUS SYSTEM: Cranial nerves II-XII grossly intact, nonfocal. EXTREMITIES: No edema, no erythema. LABORATORY DATA: WBC 5.8, hemoglobin 12, hematocrit 37.1, platelets 281. Sodium 141, potassium 3.9, chloride 106, bicarb 27, BUN 37, creatinine 0.9, serum glucose 86, lactate 0.8, calcium 9.3, total bilirubin 0.3, AST 18, ALT 16, alkaline phosphatase 73. IMAGING DATA: Soft tissue neck here done today, results are pending. ASSESSMENT AND PLAN: This is an 82-year-old female who presents with cat scratch about a month ago on 11/09/2022, treated with a 10-day course of Augmentin, that was healed, but now comes with neck swelling. 1. Right cervical suppurative lymphadenopathy with some mass effects: ENT advised to come to the hospital for possible drainage. Was started on azithromycin as outpatient,and one day more left as per patient. Currently received Unasyn and azithromycin in ER, which will be continued. Will keep n.p.o. after midnight. ID consult, ENT consult. Gentle fluids. Monitor in the medical floor. 2. History of hypertension: Continue home medication of amlodipine, atenolol, benazepril, hydrochlorothiazide. Will monitor the blood pressure. 3. History of hyperlipidemia: Continue statin. 4. Chronic kidney disease stage III: Will follow the labs. Today creatinine is 0.9. 5. Deep venous thrombosis prophylaxis: Sequential compression devices for now. DISPOSITION: Closely monitor in the medical floor. Expect to discharge home and follow with family doctor. Level 1 full code. Job ID: [id number] F [facility]ITALSaritha
[2022-12-15] MEDS ORDERED: ACETAMINOPHEN 325 MG TAB PO PRN (23:53)
[2022-12-15] MEDS ORDERED: POLYETHYLENE (MIRALAX) 17 GM PACK PO PRN (23:53)
[2022-12-16] MEDS: SACCHAROMYCES BOULARDII 250 MG CAP PO SCH ×3 (00:40→20:05)
--- NOTE | 2022-12-16 01:24 | Emergency Department Note ---
Impression & Plan Mass of right side of neck, Lymphadenopathy, cervical ED Provider Note CHIEF COMPLAINT: Neck swelling HISTORY OF PRESENT ILLNESS: This 82 yo female patient with past medical history of chest pain, degenerative joint disease, recent cat scratch with hand cellulitis 1 month ago presents to the emergency department with complaints of right-sided neck swelling x1 week. The patient has been on 2 courses of amoxicillin and started azithromycin 3 days ago. Primary care physician Dr. Swift sent the patient for CT imaging of the neck due to right-sided swelling. Patient denies any other swelling including the axilla and groin. She states she has been feeling well recently in fact she was gardening this afternoon when she received a call from the nurse. CT imaging is concerning for suppurative lymphadenopathy versus abscess. ENT Dr. Moy reviewed the patient's case as an outpatient and referred the patient to the emergency department for further management. Patient denies any fevers, difficulty swallowing, shortness of breath or significant pain. She denies any recent tra carlos a to the area. REVIEW OF SYSTEMS: A review of systems was performed with positives and pertinent negatives listed in the history of present illness. 10 systems were reviewed and are otherwise negative. ALLERGIES: see below MEDICATIONS: see below PMH: see below SOCIAL HISTORY: see below DDx: Infectious etiology, reactive lymphadenopathy, malignancy, abscess among others PHYSICAL EXAM: Vital signs reviewed. General: Well-appearing 82-year-old female, in no significant distress. HEENT: No scleral icterus, PERRLA, neck supple. Atraumatic. Marked asymmetry of the anterior neck, large right sided swelling/mass. Minimally tender, no erythema. Posterior oropharynx is clear. Lymph: R cervical mass/swelling as above, NO palp lymphadenopathy to L neck, B axilla and groin. Cardiovascular: Regular rate and rhythm, no extra sounds. Pulmonary: Clear to auscultation bilaterally, normal work of breathing. Abdomen: Soft, nontender, nondistended, positive bowel sounds. Musculoskeletal: Atraumatic, no peripheral edema. Neurologic: Patient awake alert and oriented x 3, speech is clear Skin: Warm, dry, no rash EMERGENCY DEPARTMENT COURSE/MDM: This pt was evaluated and appeared to be in no distress. External medical records including imaging, ENT communications, PCP communications were reviewed. IV access was obtained and lab work was drawn. Pt was evaluated and appeared to be in no distress. PE is significant for R neck mass/swelling. Case was d/w ENT Dr. Craven who requested repeat CT as most recent previous was several days ago. She has recommended IV antibiotics, medical admission and she will consult. Pt was informed of the plan and agrees. Hospitalist service was consulted for further management. MONITORING: An order for cardiac monitoring was placed and the patient is noted to be in a normal sinus rhythm at 60 beats per minute. RADIOLOGY: CT imaging of the soft tissue neck to my interpretation reveals significant right-sided lymphadenopathy, 2 circumscribed areas concerning for abscess. Otherwise defer to radiology. DISPOSITION: Admission Past Med/Surg History Medical History (Updated 12/19/22 @ 13:01 by Yadira Melgoza MD) Abnormal CT of the abdomen Acute pyelonephritis Bacteremia DJD (degenerative joint disease) Hypertension Hypertension Hypokalemia Osteoarthritis Surgical History History of appendectomy History of cataract surgery LEFT History of colonoscopy History of dilatation and curettage History of endometrial ablation History of total knee replacement left Family History Other Hypertension Social History Smoking Status: Never smoker Second Hand Exposure: No; Do You Dip or Chew Tobacco: No; Hx Alcohol Use: No Hx Substance Use: No Preferred Language: Belarusian Communication Ability: Effective Meeting Facilitator Required: No Beliefs That Will Affect Care: None Current Living Situation: Spouse and Family Feels Safe at Home: Yes Assistive Devices: None Allergies Allergies Allergy/AdvReac Type Severity Reaction Status Date / Time No Known Allergies Allergy Verified 09/05/21 12:43 Home Meds Home Medications Medication Instructions Recorded Confirmed atenolol 50 mg tablet 50 mg PO QAM 11/27/19 09/05/21 hydrochlorothiazide 25 mg tablet 25 mg PO QAM 11/27/19 09/05/21 multivit with 1 tab PO QAM 11/27/19 09/05/21 aqulfezl-vnlj-QK-lutein 8 mg iron-400 mcg-300 mcg tablet (Centrum Silver Women) amlodipine 5 mg tablet 5 mg PO QAM 07/17/21 09/05/21 benazepril 40 mg tablet 40 mg PO DAILY 09/04/21 09/05/21 rosuvastatin 20 mg tablet 20 mg PO DAILY 12/15/22 12/15/22 Previous Rx's Medication Instructions Recorded Saccharomyces boulardii 250 mg 250 mg PO BID #40 caps 12/17/22 capsule (Florastor) amoxicillin 875 mg-potassium 1 tab PO BID #20 tabs 12/17/22 clavulanate 125 mg tablet azithromycin 500 mg tablet 500 mg PO DAILY 14 days #14 tabs 12/17/22 Results & Data (ED) Vital Signs Vital Signs - 24 hr 12/15/22 15:20 12/15/22 18:34 12/15/22 19:37 Temperature 36.8 C Temperature Source Temporal Artery Scan Pulse Rate 61 55 L Pulse Rate [Apical] 60 Pulse Rhythm [Apical] Regular Respiratory Rate 20 15 19 Respiratory Effort / Characteristics Non-Labored Spontaneous Respiratory Depth Normal Respiratory Pattern Regular Blood Pressure 147/70 H 145/75 H Blood Pressure [Left Arm] 147/95 H Blood Pressure Mean 95 98 Blood Pressure Mean [Left Arm] 112 Pulse Oximetry 97 95 98 Oxygen Delivery Method Room Air Room Air Room Air Sepsis Recent Fever Within 48 Hours No Sepsis New/Unexplained Change in Mental Status No Sepsis Action Taken by Nursing No Action Required Home Medications Current Medication List: was personally reviewed by me Laboratory Data Attestation: I reviewed the patient's lab results. 12/15/22 15:32 12/15/22 15:32 Lab Results 12/15/22 12/15/22 12/15/22 Range/Units 15:32 15:32 19:38 WBC 5.87 (4.8-10.8) K/ul RBC 4.08 L (4.20-5.40) M/uL Hgb 12.0 (12.0-16.0) g/dl Hct 37.1 (37.0-47.0) % MCV 90.9 (80.0-100.0) fL MCH 29.4 (25.0-34.0) pg MCHC 32.3 (32.0-36.0) g/dL RDW Std Deviation 47.0 H (36.4-46.3) fL RDW Coeff of Suleiman 14.0 (11.5-14.5) % Plt Count 281 (130-400) K/uL MPV 10.8 (9.4-12.4) fL Immature Gran % (Auto) 0.3 % Neut % (Auto) 63.9 % Lymph % (Auto) 21.5 % [place] % (Auto) 11.4 % Eos % (Auto) 2.4 % Baso % (Auto) 0.5 % Neut # (Auto) 3.75 (1.40-6.50) K/uL Lymph # (Auto) 1.26 (1.2-3.4) K/uL [place] # (Auto) 0.67 H (0.11-0.59) K/uL Eos # (Auto) 0.14 (0-0.50) K/uL Baso # (Auto) 0.03 (0-0.2) K/uL Immature Gran # (Auto) 0.02 (0.01-0.20) K/uL Sodium 141 (136-145) mmol/L Potassium 3.9 (3.5-5.1) mmol/L Chloride 106 (98-107) mmol/L Carbon Dioxide 27 (21-32) mmol/L Anion Gap 8 (3-11) BUN 37 H (6-23) mg/dl Creatinine 0.92 (0.6-1.2) mg/dl Est Cr Clr Drug Dosing 46.6 ml/min Est GFR ( Amer) 68.2 ml/min Est GFR (Non-Af Amer) 58.8 ml/min BUN/Creatinine Ratio 40.2 H (10-20) Glucose 86 (70-99(Fasting)) mg/dl Lactate 0.8 (0.4-2.0) mmol/L Calcium 9.3 (8.6-10.3) mg/dl Total Bilirubin 0.3 (0.2-1.0) mg/dl AST 18 (13-39) U/L ALT 16 (7-52) U/L Alkaline Phosphatase 73 (34-104) U/L Total Protein 7.5 (6.0-8.3) gm/dl Albumin 3.8 (3.4-5.0) gm/dl Globulin 3.7 (2.5-4.0) gm/dl Albumin/Globulin Ratio 1.0 (0.9-2) Administered Medications Discontinued Medications Amlodipine Besylate (Amlodipine Besylate 5 Mg Tab) 5 mg PO QAM [facility] Stop: 01/15/23 08:59 Last Admin: 12/17/22 08:49 Dose: 5 mg Documented By: Admin: 12/16/22 08:49 Dose: 5 mg Documented By: PADILLA Atenolol (Atenolol 50 Mg Tablet) [facility] [place]: 01/15/23 08:59 Last Admin: 12/17/22 08:48 Dose: 50 mg Documented By: Admin: 12/16/22 08:49 Dose: Not Given Documented By: PADILLA Enalapril Maleate (Enalapril Maleate 10 Mg Tab) 40 mg PO DAILY [facility] Stop: 01/15/23 08:59 Last Admin: 12/17/22 08:48 Dose: 40 mg Documented By: Admin: 12/16/22 08:49 Dose: 40 mg Documented By: PADILLA Hydrochlorothiazide (Hydrochlorothiazide 25 Mg Tab) 25 mg PO QAM [facility] Stop: 01/15/23 08:59 Last Admin: 12/17/22 08:49 Dose: 25 mg Documented By: Admin: 12/16/22 08:49 Dose: 25 mg Documented By: PADILLA Azithromycin 500 mg/ Dextrose 255 mls @ 127.5 mls/hr IV NOW STA Stop: 12/15/22 21:03 Last Infusion: 12/15/22 22:59 Dose: 0 mls/hr Documented By: Admin: 12/15/22 20:59 Dose: 127.5 mls/hr Documented By: VERONICA Ampicillin Sodium/Sulbactam Sodium 3,000 mg/ Sodium Chloride 108 mls @ 200 mls/hr IV NOW STA; Protocol Stop: 12/15/22 19:36 Last Infusion: 12/15/22 20:39 Dose: 0 mls/hr Documented By: Admin: 12/15/22 20:06 Dose: 200 mls/hr Documented By: VERONICA Azithromycin 500 mg/ Dextrose 255 mls @ 125 mls/hr IV Q24H JANET Stop: 12/23/22 20:59 Last Infusion: 12/16/22 22:44 Dose: 0 mls/hr Documented By: Admin: 12/16/22 20:41 Dose: 125 mls/hr Documented By: LORRI Ampicillin Sodium/Sulbactam Sodium 3,000 mg/ Sodium Chloride 108 mls @ 200 mls/hr IV Q6H JANET; Protocol Stop: 12/23/22 01:59 Last Infusion: 12/17/22 15:03 Dose: 0 mls/hr Documented By: Admin: 12/17/22 14:22 Dose: 200 mls/hr Documented By: Infusion: 12/17/22 09:40 Dose: 0 mls/hr Documented By: Admin: 12/17/22 08:54 Dose: 200 mls/hr Documented By: Infusion: 12/17/22 02:01 Dose: 0 mls/hr Documented By: TKGamal Admin: 12/17/22 01:28 Dose: 200 mls/hr Documented By: Infusion: 12/16/22 20:41 Dose: 0 mls/hr Documented By: Admin: 12/16/22 20:06 Dose: 200 mls/hr Documented By: Infusion: 12/16/22 15:40 Dose: 0 mls/hr Documented By: Admin: 12/16/22 14:40 Dose: 200 mls/hr Documented By: Infusion: 12/16/22 09:26 Dose: 0 mls/hr Documented By: Admin: 12/16/22 08:49 Dose: 200 mls/hr Documented By: Infusion: 12/16/22 02:20 Dose: 0 mls/hr Documented By: Admin: 12/16/22 01:47 Dose: 200 mls/hr Documented By: Tuberculin PPD 5 tu/ Syringe 0.1 mls @ 0.033 mls/min ID ONE ONE Stop: 12/16/22 14:18 Last Admin: 12/16/22 16:58 Dose: 0.033 mls/min Documented By: PADILLA Ioversol (Optiray 320 100ml) 89 ml IV ONCE ONE Stop: 12/15/22 20:15 Last Admin: 12/15/22 20:14 Dose: 89 ml Documented By: TOMAS Multivitamins/Minerals (Cerovite Adv Formula Tab) 1 tab PO QAM [facility] Stop: 01/15/23 08:59 Last Admin: 12/17/22 08:48 Dose: 1 tab Documented By: Admin: 12/16/22 08:49 Dose: 1 tab Documented By: PADILLA Rosuvastatin Calcium (Rosuvastatin Calcium 20 Mg Tab) 20 mg PO DAILY [facility] Stop: 01/15/23 08:59 Last Admin: 12/17/22 08:48 Dose: 20 mg Documented By: Admin: 12/16/22 08:49 Dose: 20 mg Documented By: PADILLA Saccharomyces Boulardii (Saccharomyces Boulardii 250 Mg Cap) 250 mg PO BID JANET Stop: 01/14/23 23:52 Last Admin: 12/17/22 08:48 Dose: 250 mg Documented By: Admin: 12/16/22 20:05 Dose: 250 mg Documented By: Admin: 12/16/22 08:50 Dose: 250 mg Documented By: Admin: 12/16/22 00:40 Dose: 250 mg Documented By: FR Imaging Data Radiologist's Impression: Soft Tissue Neck CT 12/15/22 19:04 Exam(s): CT NECK With Contrast IV Amt: 89 ml optiray 320 EXAM: CT Neck With Intravenous Contrast CLINICAL HISTORY: Reason for exam: supporitive R lymphadenopathy. TECHNIQUE: Axial computed tomography images of the neck with intravenous contrast. Automated exposure control was utilized for the study. A dose lowering technique was utilized adhering to the principles of ALARA. CONTRAST: Patient received 89 ml optiray 320 of IV contrast COMPARISON: No relevant prior studies available. FINDINGS: Oropharynx: Unremarkable. No significant tonsillar enlargement. No peritonsillar abscess. Hypopharynx: Unremarkable. Larynx: Unremarkable. Normal epiglottis. Trachea: Unremarkable. Retropharyngeal space: Unremarkable. Submandibular/parotid glands: Unremarkable. Glands are normal in size. Thyroid: Heterogeneous thyroid gland without a focal nodule measuring larger than a centimeter. Bones/joints: No acute fracture. Soft tissues: Unremarkable. Vasculature: No acute findings. Lymph nodes: There are at least 2 solid right posterior cervical chain masses measuring 3.0 x 2.0 cm at the C2 level and 3.0 x 1.5 cm at the C3 level. These findings are concerning for malignancy until proven otherwise. Numerous abnormal low density lymph nodes are present at level 2 and level 3. Additional mildly enlarged solid lymphadenopathy is present measuring up to 1.4 cm at level 2. Lung apices: Unremarkable as visualized. IMPRESSION: 2 solid right posterior cervical chain masses with cervical low density lymph nodes concerning for a primary malignancy with lymph node involvement. Electronically signed by: Rober Kilgore M.D. 12/15/22 21:31 PM Discharge Plan Visit Data Chief Complaint: Neck Injury/Pain Stated Complaint: REF BY DOC,HAS ABSCESS IN NECK,NEEDS DRAINING ED Provider: Yadira Melgoza Discharge Problem: Mass of right side of neck, Lymphadenopathy, cervical Patient Disposition: Admitted As Inpatient Discharge Instructions Interventions: ED Discharge Assessment Last Done: 12/15/22 23:08
[2022-12-16] MEDS: AMPICILLIN/SULBACTAM SOD 3,000 MG in 0.9 % SODIUM CHLORIDE 100 ML IV SCH ×4 (01:47→20:06)
[2022-12-16 06:13] LABS: Basophils # (auto) 0.02 K/uL (0-0.2); Basophils % (auto) 0.4 %; Eosinophils # (auto) 0.12 K/uL (0-0.50); Eosinophils % (auto) 2.3 %; Hematocrit (blood only) 34.2 % (37.0-47.0); Hemoglobin 11.4 g/dl (12.0-16.0); Immature Granulocytes # (auto) 0.02 K/uL (0.01-0.20); Immature Granulocytes % (auto) 0.4 %; Lymphocytes # (auto) 1.13 K/uL (1.2-3.4); Lymphocytes % (auto) 21.9 %; Mean Corpuscular Hemoglobin 29.9 pg (25.0-34.0); Mean Corpuscular Hgb Conc 33.3 g/dL (32.0-36.0); Mean Corpuscular Volume 89.8 fL (80.0-100.0); Mean Platelet Volume 10.8 fL (9.4-12.4); Monocytes # (auto) 0.54 K/uL (0.11-0.59); Monocytes % (auto) 10.5 %; Neutrophils # (auto) 3.32 K/uL (1.40-6.50); Neutrophils % (auto) 64.5 %; Platelet Count 224 K/uL (130-400); RDW Coefficient of Variation 14.1 % (11.5-14.5); RDW Standard Deviation 46.4 fL (36.4-46.3); Red Blood Count 3.81 M/uL (4.20-5.40); White Blood Count 5.15 K/ul (4.8-10.8)
[2022-12-16 06:22] LABS: BUN Creatinine Ratio 31.3 (10-20); Calcium 9.1 mg/dl (8.6-10.3); Creatinine Clr Calc Pharmacy 51.5 ml/min; Est GFR (African American) 77.2 ml/min; Est GFR (Non-African American) 66.6 ml/min; Magnesium 1.8 mg/dl (1.7-2.4); Potassium 3.6 mmol/L (3.5-5.1)
--- NOTE | 2022-12-16 08:42 | ENT Consultation ---
Date of Consultation December 16, 2022 Assessment & Plan (1) Cervical lymphadenopathy: Plan 82yF with bulky R cervical adenopathy x1 week. Large conglomerate of fixed/matted nodes and multiple necrotic appearing nodes on imaging and exam. History includes recent cat scratch with abscess on hand. Differential includes infectious (bartonella/atypical mycobacterial infection/superinfection of necrotic nodes) vs. malignancy. There is no sign of primary malignancy on head/neck exam. Given time course and recent exposure, I suspect this is infectious in etiology. Clinically she looks well and nontoxic. Improving on azithromycin. -OK for PO today, no plan for I+D today -Continue azithromycin and unasyn for possible superinfection -Recommend bartonella titers, PPD, toxoplasmosis titers, CMV, EBV, ESR -Will continue to follow, if stable/improving tomorrow may be able to be discharged for ongoing outpatient evaluation History of Present Illness Reason for Consultation: R cervical adenopathy Attending Physician: Ya Shah MD History of Present Illness 82yF seen for evaluation of R cervical adenopathy. Reports scratch on her R hand 2 weeks ago from a barn cat with subsequent swelling/abscess. Underwent I+D x2 by PCP and treated with amoxicillin. Then 1 week ago noted significant swelling and tenderness R neck. Started on amoxicillin 12/11/[address] neck with contrast ([employer]) showed sig R solid and cystic/necrotic lymphadenopathy with soft tissue stranding. Switched to azithromycin 12/12/22 with subsequent improvement in neck swelling. Presented to ED at advisement of PCP/Dr. Moy. Reports 75% improvement in R neck swelling and resolution of tenderness since beginning azithromycin. Otherwise feels well. No fevers, throat pain, dysphagia, odynophagia, otalgia, unexplained weight loss. No fatigue, easy bruising/bleeding, night sweats. No history of head/neck surgery or XRT. No hist ory of skin cancer. Never smoker, no chewing tobacco use. WBC normal CT neck with contrast shows per my read conglomerate of R level II/III/V nodes, some necrotic, as well as multiple enlarged level IV nodes also some necrotic. Some soft tissue infiltration. Allergies Allergy/AdvReac Type Severity Reaction Status Date / Time No Known Allergies Allergy Verified 09/05/21 12:43 Home Medications Medication Instructions Recorded Confirmed Type atenolol 50 mg tablet 50 mg PO QAM 11/27/19 09/05/21 History hydrochlorothiazide 25 mg tablet 25 mg PO QAM 11/27/19 09/05/21 History multivit with 1 tab PO QAM 11/27/19 09/05/21 History tpmkztmt-zank-VR-lutein 8 mg iron-400 mcg-300 mcg tablet (Centrum Silver Women) amlodipine 5 mg tablet 5 mg PO QAM 07/17/21 09/05/21 History Saccharomyces boulardii 250 mg 250 mg PO BID #20 caps 09/04/21 09/05/21 Rx capsule (Florastor) benazepril 40 mg tablet 40 mg PO DAILY 09/04/21 09/05/21 History rosuvastatin 20 mg tablet 20 mg PO DAILY 12/15/22 12/15/22 History Patient History Medical History Abnormal CT of the abdomen Acute pyelonephritis Bacteremia DJD (degenerative joint disease) Hypertension Hypertension Hypokalemia Osteoarthritis Surgical History History of appendectomy History of cataract surgery LEFT History of colonoscopy History of dilatation and curettage History of endometrial ablation History of total knee replacement left Family History Other Hypertension Social History Smoking Status: Never smoker Second Hand Exposure: No; Do You Dip or Chew Tobacco: No; Tobacco Cessation Education Requested by Patient: No Hx Alcohol Use: No Hx Substance Use: No Preferred Language: Luxembourgish Communication Ability: Effective Stamp Collector Required: No Beliefs That Will Affect Care: None Current Living Situation: Spouse and Family Other Information That Helps Us Care for You: No Feels Safe at Home: Yes Safety Concerns: Feels Safe At This Time Assistive Devices: Glasses Review of Systems Review of Systems: A 10-point ROS is negative except as noted above Physical Exam Physical Exam: General: The patient is well-developed, well-nourished, and in no acute distress. Head and Face: Skull: No obvious deformities Salivary glands: The parotid and submandibular glands are normal in appearance and there are no masses on palpation. Facial strength: Facial motion is symmetric and without weakness. Eyes: Eyelids: There is no periorbital edema. Conjunctiva: There is no conjunctival erythema. Extraocular muscles: Extraocular movement is normal. Nystagmus: There is no nystagmus. Ears: Right auricle: The pinna is normally formed without skin lesion or mass. Left auricle: The pinna is normally formed without skin lesion or mass. Right EAC: There is no external auditory canal erythema, edema, lesion, or mass. Left EAC: There is no external auditory canal erythema, edema, lesion, or mass. Right TM/middle ear: TM is intact without perforation, flat, and translucent. The middle ear space is clear Left TM/middle ear: TM is intact without perforation, flat, and translucent. The middle ear space is clear Hearing: Clinical speech airport engineer threshold testing is grossly normal. Nose: External: There is no gross external deformity, tenderness, or skin lesion or mass. Mucosa: Mild mucosal edema/inflammation Septum: The nasal septum is midline. Nasal cavity: Moderate bilateral ITH, no mucopurulence or polyposis Oral cavity/Oropharynx: Lips: There are no lip lesions or masses. Oral cavity: There is no inflammation, lesion, or mass involving the gums, ging bharath, floor of mouth, buccal mucosa, retromolar trigone, hard palate, soft palate, tongue. Dentition is intact. Oropharynx: There is no inflammation, lesion, or mass involving the palatine tonsils or posterior pharyngeal wall. 1+ tonsils, no masses or lesions noted Neck: General: There are no visible scars or lesions involving the neck. The trachea is midline. Lymph nodes: Bulky firm, fixed R level II/III lymphadenopathy, multiple mobile R level IV lymph nodes. Slightly tender to palpation, no overlying skin changes Thyroid: There is no visible or palpable thyroid enlargement or nodularity. Respiratory/Pulmonary: There is no stertor or stridor. There is normal respiratory effort without acute distress. Cardiovascular: There is no visible extremity edema. Skin: There are no visible lesions or masses involving the skin of the head and neck region. Neurological: Cranial nerves: Cranial nerve II is noted to be intact by grossly normal visual acuity. Cranial nerves III, IV, and are noted to be intact by normal extraocular movements. Cranial nerve VII is noted to be intact by symmetric and normal facial movement. Cranial nerve VIII is noted to be intact by a relatively normal clinical speech airport engineer threshold. Cranial nerve IX is noted to be intact by an intact gag reflex and normal palatal movement. Cranial nerve X is noted to be intact by a normal voice. Cranial nerve XI is noted to be intact by normal shoulder and head movement. Cranial nerve XII is noted to be intact by normal symmetric tongue movement. Vestibular system: The patient has a normal gait. There is no spontaneous or gaze evoked nystagmus. Psychiatric: Mental status: The patient is awake and alert. Mood/affect: The patient has a normal mood and affect. Procedure: Flexible fiberoptic laryngoscopy Indication: lymphadenopathy Details: Following the topical application of afrin and lidocaine, the flexible laryngoscope was inserted into the nasal cavity. The septum, turbinates, and nasal mucosa were normal. The nasopharynx was normal. The palatine tonsils were normal bilaterally. The base of tongue and vallecula were normal. The epiglottis, bilateral arytenoids, and bilateral aryepiglottic folds, and bilateral false vocal folds were normal. The true vocal folds were normal without masses or lesions. There was normal mobility of the true vocal folds bilaterally. The bilateral pyriform sinuses and postcricoid space was normal. There was no pooling of secretions. No aspiration or penetration was visualized. The patient tolerated the procedure well. Results & Data Vital Signs (Past 12 Hours) Vital Signs Temp Pulse Pulse Resp BP Pulse Ox O2 Del Method 12/16/22 07:46 36.9 C 56 L 18 118/67 96 Room Air 12/16/22 00:01 36.6 C 55 L 16 162/81 H 96 Room Air 12/15/22 23:02 53 L 18 121/62 95 Room Air PG Care Time/CCT Total # of Minutes Spent Total Time Spent with Patient: Total time spent is greater than 50% in coordination of care (as documented) at patient's floor/unit and/or counseling patient: Coding Level of Care Code 98978 IN/OBS CONSULT LVL 4,60M (25 - SIGNIFICANT, SEPARATELY IDENTIFIABLE ) Diagnoses Cervical lymphadenopathy R59.0 CPT Codes LARYNGOSCOPY DIAGNOSTIC FLEXIBLE - 35993 ([id number])
[2022-12-16] MEDS: CEROVITE ADV FORMULA TAB PO SCH (08:49)
[2022-12-16] MEDS: ENALAPRIL MALEATE 10 MG TAB PO SCH (08:49)
[2022-12-16] MEDS: ROSUVASTATIN CALCIUM 20 MG TAB PO SCH (08:49)
[2022-12-16] MEDS: ATENOLOL 50 MG TABLET PO SCH (08:49)
[2022-12-16] MEDS: hydroCHLOROthiazide 25 MG TAB PO SCH (08:49)
[2022-12-16] MEDS: amLODIPine BESYLATE 5 MG TAB PO SCH (08:49)
[2022-12-16] MEDS ORDERED: AMPICILLIN/SULBACTAM SOD 3,000 MG in 0.9 % SODIUM CHLORIDE 100 ML IV SCH (13:00)
[2022-12-16] MEDS ORDERED: TUBERCULIN SKIN TEST 5 TU in SYRINGE 0 ML ID ONE (14:15)
--- NOTE | 2022-12-16 15:05 | Hospitalist Progress Note ---
Date of Service December 16, 2022 Assessment & Plan (1) Cervical lymphadenopathy: Plan: History of cat bite to the dorsum of right hand about 1 month back Status post I&D for abscess locally which has been cleared Developed right cervical swelling about 2 weeks back which was initially warm and worse than now Outpatient CT scan was suggestive of extensive right anterior, posterior cervical chain adenopathy with suppuration and notable conglomerate and the patient was sent into the emergency room She was treated with 10-day course of Augmentin following initial cat scratch Has been started with intravenous Unasyn and Augmentin Appreciate ENT input and recommendation-we will have Ian-Fermin virus, CMV, toxoplasma and Bartonella antibodies, PPD and ESR checked If she feels better will be discharged home tomorrow (2) Cat bite of hand: Plan: Minimal redness but the wound healed nicely (3) Hypertension: Plan: Blood pressure is controlled DVT prophylaxis SCDs CODE STATUS Full Admission and Anticipated Discharge Date Admission Date: December 15, 2022 Subjective 12/16/2022 The patient was seen and examined in medical floor She was admitted with right-sided neck swelling History of cat bite right hand 1 month ago and has been having swelling of the right neck for the last 2 weeks No fever and or chills She feels the swelling has been improving Denies any other symptom Review of Systems Review of Systems: All systems reviewed and are unremarkable except as noted below Physical Exam Physical Exam: Sitting on a chair without any acute distress Constitutional: well developed, well nourished, + ill appearing and average body habitus Eyes: PERRL, conjunctivae normal, anicteric sclerae Neck: + abnormal visual inspection (Swelling of the right upper neck without any significant tenderness and flu) Respiratory: no respiratory distress Auscultation: lungs clear to auscultation bilaterally Cardiovascular: Rate/Rhythm: regular rate, regular rhythm and + bradycardic Heart Sounds: normal S1 and normal S2; no murmur Extremities: no edema Gastrointestinal (Abdomen): Inspection/Auscultation: normal bowel sounds; abdomen not distended Percussion/Palpation: abdomen soft; abdomen nontender Musculoskeletal: No acute arthritis involving any of the joint Neurologic: normal touch/pain/proprioception and moves all extremities; no focal motor deficits Psychiatric: A+Ox3, euthymic affect Lymphatic: no cervical or axillary lymphadenopathy Results & Data Results & Data Vital Signs (Past 12 Hours) Vital Signs Temp Pulse Resp BP Pulse Ox O2 Del Method 12/16/22 07:46 36.9 C 56 L 18 118/67 96 Room Air Laboratory Results Short CBC 12/15/22 12/16/22 Range/Units 15:32 05:27 WBC 5.87 5.15 (4.8-10.8) K/ul Hgb 12.0 11.4 L (12.0-16.0) g/dl Hct 37.1 34.2 L (37.0-47.0) % Plt Count 281 224 (130-400) K/uL BMP 12/15/22 12/16/22 15:32 05:27 Sodium 141 139 Potassium 3.9 3.6 Chloride 106 104 Carbon Dioxide 27 27 BUN 37 H 26 H Creatinine 0.92 0.83 Glucose 86 93 Calcium 9.3 9.1 Liver Function 12/15/22 Range/Units 15:32 Total Bilirubin 0.3 (0.2-1.0) mg/dl AST 18 (13-39) U/L ALT 16 (7-52) U/L Alkaline Phosphatase 73 (34-104) U/L Albumin 3.8 (3.4-5.0) gm/dl Medications Administered Current Inpatient Medications Acetaminophen (Acetaminophen 325 Mg Tab) 650 mg PO Q4H PRN PRN Reason: pain/fever Stop: 01/14/23 23:52 Amlodipine Besylate (Amlodipine Besylate 5 Mg Tab) [facility] [place] Stop: 01/15/23 08:59 Last Admin: 12/16/22 08:49 Dose: 5 mg Atenolol (Atenolol 50 Mg Tablet) [facility] [place] Stop: 01/15/23 08:59 Last Admin: 12/16/22 08:49 Dose: Not Given Enalapril Maleate (Enalapril Maleate 10 Mg Tab) 40 mg PO DAILY JANET Stop: 01/15/23 08:59 Last Admin: 12/16/22 08:49 Dose: 40 mg Hydrochlorothiazide (Hydrochlorothiazide 25 Mg Tab) 25 mg PO QAM [facility] Stop: 01/15/23 08:59 Last Admin: 12/16/22 08:49 Dose: 25 mg Azithromycin 500 mg/ Dextrose 255 mls @ 125 mls/hr IV Q24H JANET Stop: 12/23/22 20:59 Ampicillin Sodium/Sulbactam Sodium 3,000 mg/ Sodium Chloride 108 mls @ 200 mls/hr IV Q6H [facility]; Protocol Stop: 12/23/22 01:59 Last Admin: 12/16/22 14:40 Dose: 200 mls/hr Miscellaneous (Ppd Check) 1 each N/A Q48H ONE Stop: 12/18/22 14:16 Multivitamins/Minerals (Cerovite Adv Formula Tab) 1 tab PO QAM [facility] Stop: 01/15/23 08:59 Last Admin: 12/16/22 08:49 Dose: 1 tab Polyethylene Glycol (Polyethylene (Miralax) 17 Gm Pack) 17 gm PO DAILY PRN PRN Reason: Constipation Stop: 01/14/23 23:52 Rosuvastatin Calcium (Rosuvastatin Calcium 20 Mg Tab) 20 mg PO DAILY [facility] Stop: 01/15/23 08:59 Last Admin: 12/16/22 08:49 Dose: 20 mg Saccharomyces Boulardii (Saccharomyces Boulardii 250 Mg Cap) 250 mg PO BID [facility] Stop: 01/14/23 23:52 Last Admin: 12/16/22 08:50 Dose: 250 mg
[2022-12-16] MEDS ORDERED: AZITHROMYCIN 500 MG in DEXTROSE 5% 250 ML IV SCH (21:00)
[2022-12-17] MEDS: AMPICILLIN/SULBACTAM SOD 3,000 MG in 0.9 % SODIUM CHLORIDE 100 ML IV SCH ×3 (01:28→14:22)
[2022-12-17 07:01] LABS: Basophils # (auto) 0.02 K/uL (0-0.2); Basophils % (auto) 0.4 %; Eosinophils % (auto) 1.8 %; Hematocrit (blood only) 36.1 % (37.0-47.0); Immature Granulocytes # (auto) 0.02 K/uL (0.01-0.20); Immature Granulocytes % (auto) 0.4 %; Lymphocytes # (auto) 1.15 K/uL (1.2-3.4); Lymphocytes % (auto) 21.3 %; Mean Corpuscular Hemoglobin 29.9 pg (25.0-34.0); Mean Corpuscular Hgb Conc 33.2 g/dL (32.0-36.0); Mean Corpuscular Volume 89.8 fL (80.0-100.0); Mean Platelet Volume 10.3 fL (9.4-12.4); Monocytes # (auto) 0.47 K/uL (0.11-0.59); Monocytes % (auto) 8.7 %; Neutrophils # (auto) 3.65 K/uL (1.40-6.50); Neutrophils % (auto) 67.4 %; Platelet Count 239 K/uL (130-400); RDW Coefficient of Variation 13.9 % (11.5-14.5); RDW Standard Deviation 45.8 fL (36.4-46.3); Red Blood Count 4.02 M/uL (4.20-5.40); White Blood Count 5.41 K/ul (4.8-10.8)
[2022-12-17 07:30] LABS: BUN Creatinine Ratio 28.3 (10-20); Calcium 9.2 mg/dl (8.6-10.3); Creatinine Clr Calc Pharmacy 46.5 ml/min; Est GFR (African American) 68.2 ml/min; Est GFR (Non-African American) 58.8 ml/min; Potassium 3.8 mmol/L (3.5-5.1)
[2022-12-17] MEDS: CEROVITE ADV FORMULA TAB PO SCH (08:48)
[2022-12-17] MEDS: ROSUVASTATIN CALCIUM 20 MG TAB PO SCH (08:48)
[2022-12-17] MEDS: ENALAPRIL MALEATE 10 MG TAB PO SCH (08:48)
[2022-12-17] MEDS: SACCHAROMYCES BOULARDII 250 MG CAP PO SCH (08:48)
[2022-12-17] MEDS: ATENOLOL 50 MG TABLET PO SCH (08:48)
[2022-12-17] MEDS: hydroCHLOROthiazide 25 MG TAB PO SCH (08:49)
[2022-12-17] MEDS: amLODIPine BESYLATE 5 MG TAB PO SCH (08:49)
--- NOTE | 2022-12-17 10:02 | Ears,Nose,Throat Progress Note ---
Date of Service December 17, 2022 Assessment & Plan (1) Cervical lymphadenopathy: Plan 82yF with bulky R cervical adenopathy x1 week. Large conglomerate of fixed/matted nodes and multiple necrotic appearing nodes on imaging and exam. History includes recent cat scratch with abscess on hand. Differential includes infectious (bartonella/atypical mycobacterial infection/superinfection of necrotic nodes) vs. malignancy. There is no sign of primary malignancy on head/neck exam. Given time course and recent exposure, I suspect this is infectious in etiology (likely bartonella) with possible bacterial superinfection. Clinically she looks well and nontoxic. Improving on azithromycin. -OK for d/c home today from ENT standpoint with close follow up -Continue azithromycin for at least 2 weeks for presumed atypical mycobacterial/bartonella infection, and augmentin x10 days for possible superinfection -F/u bartonella titers, PPD, toxoplasmosis titers, CMV, EBV, ESR -Counseled to return to ED or call information security manager service with worsening neck swelling, pain, fevers, skin changes, dysphagia, throat pain, dysphonia, difficulty breathing -F/u next week in office for ongoing evaluation/management - [phone] Admission and Anticipated Discharge Date Admission Date: December 15, 2022 Subjective ABDON o/n. Mild tenderness to R neck. Swelling stable. No dysphagia, dysphonia, pain otherwise. Feels well. Physical Exam Physical Exam: Bulky firm conglomerate R level II/III/V nodes with multiple 1.5cm R level IV nodes, no overlying skin changes, mildly tender to palpation Managing secretions Nontoxic appearing NAD Normal voice Nonlabored respirations, no stridor Results & Data Vital Signs (Past 12 Hours) Vital Signs Temp Pulse Resp BP Pulse Ox O2 Del Method 12/17/22 07:15 36.4 C L 61 18 144/71 H 97 Room Air PG Care Time/CCT Total # of Minutes Spent Total Time Spent with Patient: Total time spent is greater than 50% in coordination of care (as documented) at patient's floor/unit and/or counseling patient: Coding Level of Care Code 31846 SUB INP/OBS CARE 2/35MIN Diagnoses Cervical lymphadenopathy R59.0
--- NOTE | 2022-12-17 15:24 | Discharge Summary ---
Discharge Summary Date of Service December 17, 2022 Notes For Next Care Provider R cervical adenopathy likely Bartonella infection 2/2 cat scratch. Discharging with close ENT f/u, oral abx, infectious work-up in process Medication Changes From Visit Azithromycin x 14 days for presumed atypical mycobacterial/bartonella infection and augmentin x10 days for possible superinfection Admission HPI Per Admitting Provider This is an 82-year-old female with past medical history significant for hyperlipidemia, hypertension, rectocele, left hydronephrosis, chronic kidney disease stage III, who presents with right-sided cervical lymphadenopathy. The patient had a barn cat scratch her around 11/09/2022 night and she went to PCP. She was treated with a 10-day course of Augmentin. Initially it was a very big pus draining wound, that resolved. Then last Wednesday, she developed a tender neck mass in the right neck region below the ear, it was big, and she went to PCP's office and was given on the first day was given higher dose of Augmentin, but next day she was changed to azithromycin and CT scan of the neck was done and also peripheral smear was done. Peripheral smear was okay and the CT scan of the neck with contrast was showing extensive right anterior, posterior cervical chain lymphadenopathy with suppurative formation large sergio conglomerate within the ipsilateral level IIB, III, and V neck, involvement of some surrounding structures(some critical) and mass effect was seen. The CAT scan was evaluated by the ENT and advised to come to the hospital for possible drainage and also for ID consult. The patient says she has one more day of azithromycin left and the swelling is much reduced since last Wednesday. Currently she has some minimal tenderness. Denies any difficulty swallowing. No fevers, no chest pain, no shortness of breath, no cough, no nausea, no abdominal pain. Normal bowel and bladder movements. No headache, no blurred visions, no runny nose, no sore throat. Currently, resting comfortably and hemodynamically stable. Admission Exam Per Admitting Provider GENERAL: The patient is of moderate build, not in acute distress. VITAL SIGNS: Temperature 36.8, pulse 55, respiratory rate 19, blood pressure 145/75, oxygen 98% on room air. HEENT: Pupils equal, round and reactive to light. Oral mucosa moist. NECK: Palpable mass in the right side of the neck below the ear and mild tenderness. Neck is supple. CARDIOVASCULAR: S1 and S2 heard. Regular rate and rhythm. No murmur, no gallop. RESPIRATORY SYSTEM: Normal AP diameter. No accessory muscle use. No wheezing, no crackles. ABDOMEN: Soft, bowel sounds present, nontender, no distention. CENTRAL NERVOUS SYSTEM: Cranial nerves II-XII grossly intact, nonfocal. EXTREMITIES: No edema, no erythema. Principal Dx & Hospital Course #1 = Principal Diagnosis (1) Cervical lymphadenopathy: (2) Cat bite of hand: (3) Hypertension: Plan This is an 82y F presenting with bulky R cervical adenopathy x1 week with history of cat bite to the dorsum of right hand about 1 month ago. Was treated with 10 d course Augmentin after initial cat scratch but subsequently developed R cervical LAD. Evaluated by ENT who suspects this is likely an infectious etiology (likely Bartonella) with possible bacterial superinfection. No sign of primary malignancy on imaging or exam. Obtained Bartonella titers, PPD, toxoplasmosis titers, CMV, EBV, ESR and will follow up with ENT in 1 week. Discharging on azithromycin for at least 2 weeks for presumed atypical mycobacterial/bartonella infection and augmentin x10 days for possible superinfection. Feeling more comfortable at this time. Counseled to return to ED if develops worsening swelling, neck pain or skin changes. Hemodynamically stable at time of discharge home. Discharge Exam Gen: WD/WN, NAD, sitting in bedside chair, A&Ox3 HEENT: Normocephalic, atraumatic, conjunctivae moist, sclerae anicteric, mucous membranes moist Neck: +Palpable mass on R side of neck extending from cervical lymph nodes to post auricular area Lung: Clear to Auscultation bilaterally, no wheezes/rales/rhonchi Heart: Regular rate, regular rhythm, no murmurs, rubs, or gallops Abdomen: Soft, NT, ND +BS x 4 Extremities: no edema Skin: Warm, no rash Updated Medication List Medication Instructions Recorded Confirmed Type atenolol 50 mg tablet 50 mg PO QAM 11/27/19 09/05/21 History hydrochlorothiazide 25 mg tablet 25 mg PO QAM 11/27/19 09/05/21 History multivit with 1 tab PO QAM 11/27/19 09/05/21 History idoyxnbd-kxhq-HO-lutein 8 mg iron-400 mcg-300 mcg tablet (Centrum Silver Women) amlodipine 5 mg tablet 5 mg PO QAM 07/17/21 09/05/21 History benazepril 40 mg tablet 40 mg PO DAILY 09/04/21 09/05/21 History rosuvastatin 20 mg tablet 20 mg PO DAILY 12/15/22 12/15/22 History Saccharomyces boulardii 250 mg 250 mg PO BID #40 caps 12/17/22 09/05/21 Rx capsule (Florastor) amoxicillin 875 mg-potassium 1 tab PO BID #20 tabs 12/17/22 Rx clavulanate 125 mg tablet azithromycin 500 mg tablet 500 mg PO DAILY 14 days #14 tabs 12/17/22 Rx Hospital Stay Data Consultations 12/15/22 19:09 ED Decision to Admit Stat 12/16/22 07:09 Consult Otolaryngology (Head and Neck) Routine 12/16/22 08:00 Consult Infectious Diseases Routine Diagnostic Imagining Performed 12/15/22 19:04 CT neck soft tissues [CT soft tissue neck w con] Stat Pending Results Patient Have Any Pending Studies at Discharge: Yes Discharge Instructions Given to Patient (Per Discharging Provider) MEDICATION CHANGES: Continue azithromycin once daily x 14 days and augmentin twice a day x 10 days for infection in neck. SUMMARY OF TEST RESULTS: You were admitted with swollen and painful R neck lymph nodes following cat scratch abscess on hand. ENT suspects this was caused by infection from cat scratch Please follow up with ENT and continue antibiotics and probiotic as below PENDING TEST RESULTS: Follow-up on Bartonella titers, PPD, toxoplasmosis titers, CMV, EBV, ESR RECOMMENDATIONS FOR FOLLOW-UP: Follow up with PCP and ENT as scheduled. Complete antibiotic in its entirety. Please continue probiotic for 2 weeks. Return to ED or call business sales consultant service ([phone]) with worsening neck swelling, pain, fevers, skin changes, dysphagia, throat pain, dysphonia, difficulty breathing Continue medication regimen as scheduled aside from changes noted above. OTHER INSTRUCTIONS: Seek medical attention if you have: * temperature above 101 * chest pain or trouble breathing * abdominal pain, nausea, vomiting * diarrhea, dark stools or bloody stools * any unanswered questions or concerns Call 911 if symptoms are severe. Please take good care of yourself. Call if you have any questions or problems. You can reach a [facility] [address] hospitalist on duty at [facility] 24 hours a day by calling [phone]. Total Time Total Time Spent Total Time Spent (In Minutes): 50 Supervising Physician Co-Signing Physician Notes Attending addendum The patient was seen and examined in medical floor She has been feeling much better and the neck swelling is slightly improved There is no pain and no problem with swallowing Denies any fever and or chills On examination Sitting on a chair without any acute distress Hemodynamically stable Right neck swelling-minimally tender, no fluctuation Chest-clear to auscultate bilaterally Heart-S1, S2 regular Abdomen-benign Extremities-negative for any edema Her labs and his imaging studies reviewed Has matted right-sided cervical adenopathy Appreciate ENT input and recommendation-we will have outpatient follow-up for possible biopsy Pending results of investigation Medically stable to be discharge Reviewed assessment and plan as outlined above by RICK Jay Dr
[2022-12-18] MEDS ORDERED: PPD CHECK ONE (14:15)
== END 2022-12-17 16:15 | disposition home or self-care (01) | DRG 869 ==
LOC: ED 15:10 → 3N 20:47

== ENCOUNTER 2023-02-15 05:34 | Inpatient (IN) ==
[2023-02-15 06:39] LABS: Appearance Urine Clear (Clear); Bacteria Urine Automated Negative (Negative); Bilirubin Urine Negative (Negative); Blood Urine Negative (Negative); Cast Urine Automated 0 /lpf (0-5); Color Urine Yellow; Epithelial Cell Urine Auto 20-30 /lpf (0-5); Glucose Urine UA Negative (Negative); Ketones Urine Negative (Negative); Leukocyte Esterase Urine Trace (Negative); Nitrite Urine Negative (Negative); Protein Urine Negative (Negative); RBC Urine Automated 0-4 /hpf (0-4); Specific Gravity Urine 1.021 (1.000-1.030); Urobilinogen Urine Negative (Negative); pH Urine 5.5 (4.5-7.5)
[2023-02-15 06:54] LABS: Basophils # (auto) 0.01 K/uL (0-0.2); Basophils % (auto) 0.1 %; Eosinophils # (auto) 0.07 K/uL (0-0.50); Eosinophils % (auto) 0.7 %; Hemoglobin 12.5 g/dl (12.0-16.0); Immature Granulocytes # (auto) 0.04 K/uL (0.01-0.20); Immature Granulocytes % (auto) 0.4 %; Lymphocytes # (auto) 1.25 K/uL (1.2-3.4); Lymphocytes % (auto) 12.8 %; Mean Corpuscular Hemoglobin 29.7 pg (25.0-34.0); Mean Corpuscular Hgb Conc 33.8 g/dL (32.0-36.0); Mean Corpuscular Volume 87.9 fL (80.0-100.0); Mean Platelet Volume 10.7 fL (9.4-12.4); Monocytes # (auto) 0.51 K/uL (0.11-0.59); Monocytes % (auto) 5.2 %; Neutrophils # (auto) 7.91 K/uL (1.40-6.50); Neutrophils % (auto) 80.8 %; Platelet Count 276 K/uL (130-400); RDW Coefficient of Variation 14.4 % (11.5-14.5); RDW Standard Deviation 45.9 fL (36.4-46.3); Red Blood Count 4.21 M/uL (4.20-5.40); White Blood Count 9.79 K/ul (4.8-10.8)
[2023-02-15 06:58] LABS: Albumin Level 3.6 gm/dl (3.4-5.0); BUN Creatinine Ratio 43.2 (10-20); Bilirubin Direct 0.2 mg/dl (0-0.2); Bilirubin,Total 0.4 mg/dl (0.2-1.0); Creatinine Clr Calc Pharmacy 58.1 ml/min; Est GFR (African American) 88.7 ml/min; Est GFR (Non-African American) 76.5 ml/min; Magnesium 1.9 mg/dl (1.7-2.4); Potassium 3.6 mmol/L (3.5-5.1); Total Protein 6.8 gm/dl (6.0-8.3)
[2023-02-15] MEDS ORDERED: SODIUM CHLORIDE 0.9% 1000ML 500 ML IV ONE (06:59)
[2023-02-15 07:02] LABS: Troponin I High Sensitivity 2.7 pg/ml (0-14)
[2023-02-15] MEDS ORDERED: ONDANSETRON INJ 2 MG/ML 2 ML VIAL IV STA (07:07)
[2023-02-15] MEDS ORDERED: MoRPHine SULFATE 4 MG/ML 1 ML CARP\\VIAL IV STA (07:07)
--- NOTE | 2023-02-15 07:10 | Emergency Department Note ---
Impression & Plan Acute pancreatitis ADMIT ED Provider Note HPI: The patient is an 82-year-old female with history of B-cell lymphoma, recently started on chemotherapy, status post port placement to the left upper chest, presents emergency department with a chief complaint of left flank pain. Patient states the pain began acutely overnight at about 12:30 AM, patient states the pain is located in her left flank area and does not radiate. Patient states she has had some increased urinary frequency as well as dysuria with the symptoms, denies any vomiting. On arrival here to the ED the patient is hypertensive at 171/86, she is otherwise hemodynamically stable, afebrile on arrival, patient is otherwise in no acute distress on my initial assessment. ROS: - Per HPI Differential Diagnosis: Kidney stone, pyelonephritis, urinary tract infection, musculoskeletal flank pain, metastatic disease/mass lesion of the left kidney, amongst other potential pathologies. *Outpatient medications and allergy history reviewed. *Pertinent external medical records reviewed. 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 Patient was given IV fluids, IV morphine and IV Zofran for symptoms. Lab work was obtained and shows no leukocytosis, hemoglobin is stable, platelet count is within normal limits, CMP does not show any critical findings, lactic acid is normal, there is no transaminitis, bilirubin is normal, troponin is negative, EKG does not show any ischemic changes. Urinalysis was obtained and does not show any convincing evidence of infection. CT imaging of the abdomen pelvis was obtained and shows evidence of possible mild acute pancreatitis. Lipase was therefore added to the patient's lab work. I do feel she will require admission. Case was discussed with the on-call hospitalist service for [facility] [place], case was discussed with the on-call midlevel provider, Nallely, and the patient was accepted for inpatient admission and further management. Lipase did result following our discussion and is rosita vated at 1484 consistent with acute pancreatitis. Patient was admitted in stable condition for further management. Consultants: [facility] [address] hospitalist service, Dr. Bonilla Disposition discussion held by myself with: Patient Diagnosis: 1. Acute pancreatitis 2. Elevated lipase 3. Left flank pain, acute 4. History of lymphoma, currently on chemotherapy Disposition: Admission Barry Thompson DO Emergency Medicine Past Med/Surg History Medical History (Updated 02/15/23 @ 13:05 by Barry Thompson DO) CKD (chronic kidney disease), stage III Per records DJD (degenerative joint disease) Hyperlipemia Per records Hypertension Lymphoma B-cell Osteoarthritis Surgical History (Updated 02/12/23 @ 10:11 by John Chavira DO, BARI) History of appendectomy History of biopsy lymph node of neck History of bladder surgery repaired of prolapsed bladder with mesh History of cataract surgery left/right History of colonoscopy History of dilatation and curettage History of endometrial ablation History of total knee replacement left Port-A-Cath in place (01/27/23) Insertion Access Port with Fluoroscopy(Left) - John Chavira DO, FACS Family History Mother Cancer Hypertension Other No family history of adverse response to anesthesia Social History Smoking Status: Never smoker Second Hand Exposure: No; Do You Dip or Chew Tobacco: No; Hx Alcohol Use: No Hx Substance Use: No Preferred Language: Slovenian Communication Ability: Effective Measurement Superintendent Required: No Beliefs That Will Affect Care: None marital status: Current Living Situation: Alone current occupational status: retired How many Children do You have: 5 Feels Safe at Home: Yes during the past year weight has: remained stable Assistive Devices: Glasses Allergies Allergies Allergy/AdvReac Type Severity Reaction Status Date / Time phenazopyridine [From Azo] Allergy Severe Anaphylaxis Verified 02/12/23 09:24 Home Meds Home Medications Medication Instructions Recorded Confirmed atenolol 50 mg tablet 50 mg PO QAM 11/27/19 02/15/23 hydrochlorothiazide 25 mg tablet 25 mg PO QAM 11/27/19 02/15/23 omxyrzym-kpkm-dofe 8 mg-folic 400 1 tab PO QAM 11/27/19 02/15/23 mcg-K 50 mcg-lutein 300 mcg tablet (Centrum Silver Women) amlodipine 5 mg tablet 5 mg PO QAM 07/17/21 02/15/23 benazepril 40 mg tablet 40 mg PO QAM 09/04/21 02/15/23 rosuvastatin 20 mg tablet 20 mg PO QAM 12/15/22 02/15/23 allopurinol 300 mg tablet 300 mg PO DAILY 02/15/23 02/15/23 estradiol 0.01% (0.1 mg/gram) See Rx Instructions .Route .COMPLEX 02/15/23 02/15/23 vaginal cream ondansetron HCl 8 mg tablet 8 mg PO Q6H PRN Nausea/vomiting 02/15/23 02/15/23 prednisone 20 mg tablet See Rx Instructions .Route .COMPLEX 02/15/23 02/15/23 prochlorperazine maleate 10 mg 10 mg PO Q6H PRN Nausea/vomiting 02/15/23 02/15/23 tablet Results & Data (ED) Vital Signs Vital Signs - 24 hr 02/15/23 05:38 02/15/23 06:08 02/15/23 05:35 Temperature 36.6 C Temperature Source Oral Pulse Rate 58 L 52 L Pulse Rate [Apical] 57 L Pulse Rate from SpO2 Sensor Pulse Rhythm Regular Pulse Rhythm [Apical] Regular Pulse Strength Normal Respiratory Rate 16 14 Respiratory Effort / Characteristics Non-Labored Spontaneous Non-Labored Respiratory Depth Normal Normal Respiratory Pattern Regular Blood Pressure 171/86 H Blood Pressure [Right Arm] 144/73 H Blood Pressure Mean 114 Blood Pressure Mean [Right Arm] 96 Blood Pressure Position Sitting Pulse Oximetry 96 96 Oxygen Delivery Method Room Air Sepsis Recent Fever Within 48 Hours No Sepsis New/Unexplained Change in Mental Status No Sepsis Action Taken by Nursing No Action Required 02/15/23 05:46 02/15/23 06:19 02/15/23 08:04 Temperature Temperature Source Pulse Rate 51 L 54 L Pulse Rate [Apical] Pulse Rate from SpO2 Sensor 49 L 54 L Pulse Rhythm Pulse Rhythm [Apical] Pulse Strength Respiratory Rate 15 13 Respiratory Effort / Characteristics Respiratory Depth Respiratory Pattern Blood Pressure 144/73 H 146/80 H Blood Pressure [Right Arm] Blood Pressure Mean 96 102 Blood Pressure Mean [Right Arm] Blood Pressure Position Pulse Oximetry 93 97 Oxygen Delivery Method Room Air Sepsis Recent Fever Within 48 Hours Sepsis New/Unexplained Change in Mental Status Sepsis Action Taken by Nursing 02/15/23 09:45 02/15/23 10:00 02/15/23 11:02 Temperature Temperature Source Pulse Rate 48 L 54 L 52 L Pulse Rate [Apical] Pulse Rate from SpO2 Sensor 53 L Pulse Rhythm Pulse Rhythm [Apical] Pulse Strength Respiratory Rate 14 16 Respiratory Effort / Characteristics Respiratory Depth Respiratory Pattern Blood Pressure 134/68 137/76 Blood Pressure [Right Arm] Blood Pressure Mean 90 96 Blood Pressure Mean [Right Arm] Blood Pressure Position Pulse Oximetry 97 94 Oxygen Delivery Method Room Air Sepsis Recent Fever Within 48 Hours Sepsis New/Unexplained Change in Mental Status Sepsis Action Taken by Nursing Laboratory Data 02/15/23 06:15 02/15/23 06:15 Lab Results 02/15/23 02/15/23 02/15/23 Range/Units 06:15 06:15 06:15 WBC 9.79 (4.8-10.8) K/ul RBC 4.21 (4.20-5.40) M/uL Hgb 12.5 (12.0-16.0) g/dl Hct 37.0 (37.0-47.0) % MCV 87.9 (80.0-100.0) fL MCH 29.7 (25.0-34.0) pg MCHC 33.8 (32.0-36.0) g/dL RDW Std Deviation 45.9 (36.4-46.3) fL RDW Coeff of Suleiman 14.4 (11.5-14.5) % Plt Count 276 (130-400) K/uL MPV 10.7 (9.4-12.4) fL Immature Gran % (Auto) 0.4 % Neut % (Auto) 80.8 % Lymph % (Auto) 12.8 % Ida % (Auto) 5.2 % Eos % (Auto) 0.7 % Baso % (Auto) 0.1 % Neut # (Auto) 7.91 H (1.40-6.50) K/uL Lymph # (Auto) 1.25 (1.2-3.4) K/uL Ida # (Auto) 0.51 (0.11-0.59) K/uL Eos # (Auto) 0.07 (0-0.50) K/uL Baso # (Auto) 0.01 (0-0.2) K/uL Immature Gran # (Auto) 0.04 (0.01-0.20) K/uL Sodium 135 L (136-145) mmol/L Potassium 3.6 (3.5-5.1) mmol/L Chloride 98 (98-107) mmol/L Carbon Dioxide 32 (21-32) mmol/L Anion Gap 5 (3-11) BUN 32 H (6-23) mg/dl Creatinine 0.74 (0.6-1.2) mg/dl Est Cr Clr Drug Dosing 58.1 ml/min Est GFR ( Amer) 88.7 ml/min Est GFR (Non-Af Amer) 76.5 ml/min BUN/Creatinine Ratio 43.2 H (10-20) Glucose 112 H (70-99(Fasting)) mg/dl Lactate 1.1 (0.4-2.0) mmol/L Calcium 9.0 (8.6-10.3) mg/dl Magnesium 1.9 (1.7-2.4) mg/dl Total Bilirubin 0.4 (0.2-1.0) mg/dl Direct Bilirubin 0.2 (0-0.2) mg/dl AST 17 (13-39) U/L ALT 29 (7-52) U/L Alkaline Phosphatase 75 (34-104) U/L Troponin I High Sens 2.7 (0-14) pg/ml Total Protein 6.8 (6.0-8.3) gm/dl Albumin 3.6 (3.4-5.0) gm/dl Lipase (11-82) U/L Procalcitonin (0-0.5) ng/ml Urine Color Urine Appearance (Clear) Urine pH (4.5-7.5) Ur Specific [place] (1.000-1.030) Urine Protein (Negative) Urine Glucose (UA) (Negative) Urine Ketones (Negative) Urine Blood (Negative) Urine Nitrite (Negative) Urine Bilirubin (Negative) Urine Urobilinogen (Negative) Ur Leukocyte Esterase (Negative) Urine WBC (Auto) (0-5) /hpf Urine RBC (Auto) (0-4) /hpf U Hyaline Cast (Auto) (0-5) /lpf U Epithel Cells (Auto) (0-5) /lpf Urine Bacteria (Auto) (Negative) SARS-CoV-2, RNA, NAAT (NEGATIVE) 02/15/23 02/15/23 02/15/23 Range/Units 06:15 06:15 06:15 WBC (4.8-10.8) K/ul RBC (4.20-5.40) M/uL Hgb (12.0-16.0) g/dl Hct (37.0-47.0) % MCV (80.0-100.0) fL MCH (25.0-34.0) pg MCHC (32.0-36.0) g/dL RDW Std Deviation (36.4-46.3) fL RDW Coeff of Suleiman (11.5-14.5) % Plt Count (130-400) K/uL MPV (9.4-12.4) fL Immature Gran % (Auto) % Neut % (Auto) % Lymph % (Auto) % Ida % (Auto) % Eos % (Auto) % Baso % (Auto) % Neut # (Auto) (1.40-6.50) K/uL Lymph # (Auto) (1.2-3.4) K/uL Ida # (Auto) (0.11-0.59) K/uL Eos # (Auto) (0-0.50) K/uL Baso # (Auto) (0-0.2) K/uL Immature Gran # (Auto) (0.01-0.20) K/uL Sodium (136-145) mmol/L Potassium (3.5-5.1) mmol/L Chloride (98-107) mmol/L Carbon Dioxide (21-32) mmol/L Anion Gap (3-11) BUN (6-23) mg/dl Creatinine (0.6-1.2) mg/dl Est Cr Clr Drug Dosing ml/min Est GFR ( Amer) ml/min Est GFR (Non-Af Amer) ml/min BUN/Creatinine Ratio (10-20) Glucose (70-99(Fasting)) mg/dl Lactate (0.4-2.0) mmol/L Calcium (8.6-10.3) mg/dl Magnesium (1.7-2.4) mg/dl Total Bilirubin (0.2-1.0) mg/dl Direct Bilirubin (0-0.2) mg/dl AST (13-39) U/L ALT (7-52) U/L Alkaline Phosphatase (34-104) U/L Troponin I High Sens (0-14) pg/ml Total Protein (6.0-8.3) gm/dl Albumin (3.4-5.0) gm/dl Lipase 1484 H (11-82) U/L Procalcitonin 0.06 (0-0.5) ng/ml Urine Color Yellow Urine Appearance Clear (Clear) Urine pH 5.5 (4.5-7.5) Ur Specific [place] 1.021 (1.000-1.030) Urine Protein Negative (Negative) Urine Glucose (UA) Negative (Negative) Urine Ketones Negative (Negative) Urine Blood Negative (Negative) Urine Nitrite Negative (Negative) Urine Bilirubin Negative (Negative) Urine Urobilinogen Negative (Negative) Ur Leukocyte Esterase Trace H (Negative) Urine WBC (Auto) 1-5 (0-5) /hpf Urine RBC (Auto) 0-4 (0-4) /hpf U Hyaline Cast (Auto) 0 (0-5) /lpf U Epithel Cells (Auto) 20-30 H (0-5) /lpf Urine Bacteria (Auto) Negative (Negative) SARS-CoV-2, RNA, NAAT (NEGATIVE) 02/15/23 Range/Units Unknown WBC (4.8-10.8) K/ul RBC (4.20-5.40) M/uL Hgb (12.0-16.0) g/dl Hct (37.0-47.0) % MCV (80.0-100.0) fL MCH (25.0-34.0) pg MCHC (32.0-36.0) g/dL RDW Std Deviation (36.4-46.3) fL RDW Coeff of Suleiman (11.5-14.5) % Plt Count (130-400) K/uL MPV (9.4-12.4) fL Immature Gran % (Auto) % Neut % (Auto) % Lymph % (Auto) % Ida % (Auto) % Eos % (Auto) % Baso % (Auto) % Neut # (Auto) (1.40-6.50) K/uL Lymph # (Auto) (1.2-3.4) K/uL Ida # (Auto) (0.11-0.59) K/uL Eos # (Auto) (0-0.50) K/uL Baso # (Auto) (0-0.2) K/uL Immature Gran # (Auto) (0.01-0.20) K/uL Sodium (136-145) mmol/L Potassium (3.5-5.1) mmol/L Chloride (98-107) mmol/L Carbon Dioxide (21-32) mmol/L Anion Gap (3-11) BUN (6-23) mg/dl Creatinine (0.6-1.2) mg/dl Est Cr Clr Drug Dosing ml/min Est GFR ( Amer) ml/min Est GFR (Non-Af Amer) ml/min BUN/Creatinine Ratio (10-20) Glucose (70-99(Fasting)) mg/dl Lactate (0.4-2.0) mmol/L Calcium (8.6-10.3) mg/dl Magnesium (1.7-2.4) mg/dl Total Bilirubin (0.2-1.0) mg/dl Direct Bilirubin (0-0.2) mg/dl AST (13-39) U/L ALT (7-52) U/L Alkaline Phosphatase (34-104) U/L Troponin I High Sens (0-14) pg/ml Total Protein (6.0-8.3) gm/dl Albumin (3.4-5.0) gm/dl Lipase (11-82) U/L Procalcitonin (0-0.5) ng/ml Urine Color Urine Appearance (Clear) Urine pH (4.5-7.5) Ur Specific [place] (1.000-1.030) Urine Protein (Negative) Urine Glucose (UA) (Negative) Urine Ketones (Negative) Urine Blood (Negative) Urine Nitrite (Negative) Urine Bilirubin (Negative) Urine Urobilinogen (Negative) Ur Leukocyte Esterase (Negative) Urine WBC (Auto) (0-5) /hpf Urine RBC (Auto) (0-4) /hpf U Hyaline Cast (Auto) (0-5) /lpf U Epithel Cells (Auto) (0-5) /lpf Urine Bacteria (Auto) (Negative) SARS-CoV-2, RNA, NAAT NEGATIVE (NEGATIVE) Administered Medications Discontinued Medications Sodium Chloride (Nss 1000ml) 500 mls @ 999 mls/hr IV .Q31M ONE Stop: 02/15/23 07:29 Last Infusion: 02/15/23 08:05 Dose: 0 mls/hr Documented By: Admin: 02/15/23 07:21 Dose: 999 mls/hr Documented By: NOEL Sodium Chloride (Nss) 500 mls @ 999 mls/hr IV .Q31M ONE Stop: 02/15/23 11:19 Last Infusion: 02/15/23 11:52 Dose: 0 mls/hr Documented By: Admin: 02/15/23 11:07 Dose: 999 mls/hr Documented By: DESMOND Ioversol (Optiray 320 100ml) 94 ml IV ONCE ONE Stop: 02/15/23 07:57 Last Admin: 02/15/23 07:57 Dose: 94 ml Documented By: LARY Morphine Sulfate (Morphine Sulfate 4 Mg/Ml 1 Ml Carp\Vial) 4 mg IV NOW STA Stop: 02/15/23 07:08 Last Admin: 02/15/23 07:17 Dose: 4 mg Documented By: NOEL Ondansetron HCl (Ondansetron Inj 2 Mg/Ml 2 Ml Vial) 4 mg IV NOW STA Stop: 02/15/23 07:08 Last Admin: 02/15/23 07:16 Dose: 4 mg Documented By: NOEL Imaging Data Radiologist's Impression: Chest X-Ray 02/15/23 05:46 XR chest 1V portable HISTORY: 82 years-old Female Sepsis acute sepsis COMPARISON: 02/03/2023 TECHNIQUE: AP view of the chest FINDINGS: Cardiomediastinal and hilar silhouettes are unchanged. Left IJ Sybyka-n-Byfv catheter appears to be in stable positioning. No pneumothorax, pleural effusion, airspace consolidation or pulmonary edema. Bones appear grossly intact. Degenerative changes of the shoulders and spine. IMPRESSION: No acute process. ACT 112: Negative or not required by law. The above report was generated using voice recognition software. It may contain grammatical, syntax or spelling errors. Electronically signed by: Vic Us M.D. 02/15/2023 7:15 AM Abdomen/Pelvis CT 02/15/23 06:[address] WITH IV CONTRAST CT DOSE: 1139.72 mGy.cm HISTORY: Acute left-sided flank pain in a patient with history of lymphoma L flank pain TECHNIQUE: Multiaxial CT images of the abdomen and pelvis were performed following the IV administration of 94 cc of Optiray, A dose lowering technique was utilized adhering to the principles of ALARA. COMPARISON STUDY: PET/CT 02/03/2023, CT abdomen and pelvis 09/04/2021 FINDINGS: Mild cardiomegaly. Trace pericardial effusion. Clear lung bases. No pneumatosis or pneumoperitoneum. Unremarkable spleen, right adrenal gland, gallbladder and liver with scattered hepatic cysts. Patency of the hepatic and portal veins. Stable 2 cm soft tissue attenuating left adrenal gland lesion w hich is likely benign. There is mild interstitial and peripancreatic edema. No definite associated pancreatic ductal dilation or mass identified. 10 mm peripherally calcified structures in the abdominal left upper quadrant on image 77 series 3 suggestive of a splenic artery aneurysm. No peripancreatic fluid collections. Bilateral renal cysts are again noted including a 5.1 cm left-sided renal sinus cyst. Cortical thinning with areas of parenchymal scarring again noted within the left kidney. There are a few punctate nonobstructing calculi noted within the inferior pole left kidney. Symmetric enhancement of the kidneys with mild urothelial thickening of the left ureteropelvic junction. Unremarkable urinary bladder and uterus. Atherosclerosis of the aorta. No lymphadenopathy. Tiny hiatal hernia. No bowel obstruction or bowel wall thickening. Colonic diverticulosis. Moderate colonic fecal retention. No CT evidence of acute appendicitis. There are a few stool-filled loops of small bowel noted within the lower abdomen and pelvis. Bones appear intact. No acute fracture. IMPRESSION: 1. Mild acute interstitial edematous pancreatitis. 2. No acute peripancreatic fluid collections. 3. No pathologic lymphadenopathy identified. 4. Colonic diverticulosis. 5. Additional findings as above. ACT 112: Negative or not required by law. The above report was generated using voice recognition software. It may contain grammatical, syntax or spelling errors. Electronically signed by: Vic Us M.D. 02/15/2023 8:39 AM Discharge Plan Visit Data Chief Complaint: Back Injury/Pain Stated Complaint: POSSIBLE KIDNEY INFECTION - LEFT SIDE ED Provider: Barry Thompson Discharge Problem: Acute pancreatitis Forms Stand Alone Forms: [facility] Prescriptions Prescriptions: No Action hydrochlorothiazide 25 mg tablet 25 mg PO QAM atenolol 50 mg tablet 50 mg PO QAM Centrum Silver Women 8 mg iron-400 mcg-300 mcg Tablet 1 tab PO QAM benazepril 40 mg tablet 40 mg PO QAM ondansetron HCl 8 mg Tablet 8 mg PO Q6H PRN (Reason: Nausea/vomiting) prochlorperazine maleate 10 mg Tablet 10 mg PO Q6H PRN (Reason: Nausea/vomiting) prednisone 20 mg tablet See Rx Instructions .ROUTE .COMPLEX Rx Instructions: Using per oncology recommendations allopurinol 300 mg tablet 300 mg PO DAILY estradiol 0.01 % (0.1 mg/gram) cream See Rx Instructions .ROUTE .COMPLEX Rx Instructions: APPLY PEA SIZED AMOUNT (0.5 GM) VAGINALLY EVERY OTHER NIGHT. amlodipine 5 mg Tablet 5 mg PO QAM rosuvastatin 20 mg tablet 20 mg PO QAM Referrals Referrals: Jose L Fuller, [Primary Care Provider] - Acute pancreatitis Qualifiers: Pancreatitis type: other Acute pancreatitis complication: unspecified Qualified Code(s): K85.80 - Other acute pancreatitis without necrosis or infection
--- NOTE | 2023-02-15 07:16 | XRay Report ---
XR chest 1V portable HISTORY: 82 years-old Female Sepsis acute sepsis COMPARISON: 02/03/2023 TECHNIQUE: AP view of the chest FINDINGS: Cardiomediastinal and hilar silhouettes are unchanged. Left IJ Kldhqm-c-Jygy catheter appears to be i n stable positioning. No pneumothorax, pleural effusion, airspace consolidation or pulmonary edema. B ones appear grossly intact. Degenerative changes of the shoulders and spine. IMPRESSION: No acute process. ACT 112: Negative or not required by law. The above report was generated using voice recognition software. It may contain grammatical, syntax o r spelling errors. Electronically signed by: Vic Us M.D. 02/15/2023 7:15 AM
[2023-02-15] MEDS ORDERED: OPTIRAY 320 100ml IV ONE (07:56)
--- NOTE | 2023-02-15 08:40 | CT Scan Report ---
ABDOMEN AND PELVIS CT WITH IV CONTRAST CT DOSE: 1139.72 mGy.cm HISTORY: Acute left-sided flank pain in a patient with history of lymphoma L flank pain TECHNIQUE: Multiaxial CT images of the abdomen and pelvis were performed following the IV administrat ion of 94 cc of Optiray, A dose lowering technique was utilized adhering to the principles of ALARA. COMPARISON STUDY: PET/CT 02/03/2023, CT abdomen and pelvis 09/04/2021 FINDINGS: Mild cardiomegaly. Trace pericardial effusion. Clear lung bases. No pneumatosis or pneumope ritoneum. Unremarkable spleen, right adrenal gland, gallbladder and liver with scattered hepatic cyst s. Patency of the hepatic and portal veins. Stable 2 cm soft tissue attenuating left adrenal gland le luis which is likely benign. There is mild interstitial and peripancreatic edema. No definite associa bryant pancreatic ductal dilation or mass identified. 10 mm peripherally calcified structures in the abd ominal left upper quadrant on image 77 series 3 suggestive of a splenic artery aneurysm. No peripancr eatic fluid collections. Bilateral renal cysts are again noted including a 5.1 cm left-sided renal sinus cyst. Cortical thinni ng with areas of parenchymal scarring again noted within the left kidney. There are a few punctate no nobstructing calculi noted within the inferior pole left kidney. Symmetric enhancement of the kidneys with mild urothelial thickening of the left ureteropelvic junction. Unremarkable urinary bladder and uterus. Atherosclerosis of the aorta. No lymphadenopathy. Tiny hiatal hernia. No bowel obstruction or bowel wall thickening. Colonic diverticulosis. Moderate c olonic fecal retention. No CT evidence of acute appendicitis. There are a few stool-filled loops of s mall bowel noted within the lower abdomen and pelvis. Bones appear intact. No acute fracture. IMPRESSION: 1. Mild acute interstitial edematous pancreatitis. 2. No acute peripancreatic fluid collections. 3. No pathologic lymphadenopathy identified. 4. Colonic diverticulosis. 5. Additional findings as above. ACT 112: Negative or not required by law. The above report was generated using voice recognition software. It may contain grammatical, syntax o r spelling errors. Electronically signed by: Vic Us M.D. 02/15/2023 8:39 AM
[2023-02-15] MEDS ORDERED: SODIUM CHLORIDE 0.9% 500 ML IV ONE (10:49)
--- NOTE | 2023-02-15 11:02 | History & Physical Report ---
Date of Service February 15, 2023 Assessment & Plan (1) Acute pancreatitis: Plan: This is an 82 y/o female recently diagnosed with B-cell lymphoma who just started chemotherapy four days ago who presented to the ED this morning with abrupt onset of severe left flank/left thoracic pain. Work-up in the ED revealed a lipase >[address] with mild acute interstitial edematous pancreatitis. Pt was symptomatically improved after receiving IV morphine, Zofran and fluids but symptoms were slowly recurring and etiology of pancreatitis is not entirely clear so pt was referred for admission. Case discussed with pt's oncologist - while some of her chemo drugs do have case reports of pancreatitis, it would be a rare adverse effect so she recommended work-up for other causes as well. Pt is also on HCTZ, which has been associated with pancreatitis so we will hold this for now. - Observe overnight for symptom control - Check RUQ ultrasound - of note, LFTs are normal at this point - Consult GI for additional recommendations - Pain control with IV Dilaudid - Zofran for anti-emetic - Continue IVF at 125 cc/hr - Bowel rest overnight - re-eval in AM - Labs in the AM - CBC, BMP, Mg, LFTs, and lipase - Lipid panel in AM to evaluate for hypertriglyceridemia (2) B-cell lymphoma: (3) Hypertension: (4) Hyperlipemia: (5) CKD (chronic kidney disease), stage III: Plan Continue other home medications as appropriate Pt seen and reviewed with collaborating physician, Dr. Bonilla. Plan of care discussed and as outlined above. Code Status: Full Code DVT Prophylaxis: Bautista Rizo PA-C History of Present Illness Chief Complaint: left flank pain Primary Care Provider: Jose L Fuller DO This is an 82 y/o female with history of HTN, hyperlipidemia, CKD3, left hydronephrosis, and recently diagnosed B-cell lymphoma who presented to the ED for severe left flank pain. She reports that she was woken up around 12:30 am today by pain in left flank/thoracic area - describes as a deep ache with associated abdominal discomfort/bloating and nausea. No vomiting. Pain has gradually increased in severity. Pt has a history of issues with left kidney so initially attributed to this but has not had similar pain previously. Unable to find a comfortable position. Due to pain's severity and worsening, she thought it best to come to the ED for evaluation. Initially pain was 8/10 on arrival but improved with pain meds to 3/10. Now seems to be slowly worsening again. She has not eaten yet today or taken any medications. Last BM was today around 5:30 am and was normal for her. Denies melena or hematochezia. No urinary changes. No prior history of pancreatitis. Of note, she started chemo with R- CHOP mini on of last week. She has overall felt well until today after her first dose of chemo. Has not required the anti-emetics. Energy level has been good - able to keep up with usual activity level. Appetite has been good - reports feeling hungry at present. Last meal was dinner yesterday - hamburger, [id number], broccoli salad, and strawberry shortcake. Tried some Ritz crackers for the pain but didn't help. Allergies Allergy/AdvReac Type Severity Reaction Status Date / Time phenazopyridine [From Azo] Allergy Severe Anaphylaxis Verified 02/12/23 09:24 Home Medications Medication Instructions Recorded Confirmed Type atenolol 50 mg tablet 50 mg PO QAM 11/27/19 02/15/23 History hydrochlorothiazide 25 mg tablet 25 mg PO QAM 11/27/19 02/15/23 History ubssbnra-lcpy-gahy 8 mg-folic 400 1 tab PO QAM 11/27/19 02/15/23 History mcg-K 50 mcg-lutein 300 mcg tablet (Centrum Silver Women) amlodipine 5 mg tablet 5 mg PO QAM 07/17/21 02/15/23 History benazepril 40 mg tablet 40 mg PO QAM 09/04/21 02/15/23 History rosuvastatin 20 mg tablet 20 mg PO QAM 12/15/22 02/15/23 History allopurinol 300 mg tablet 300 mg PO DAILY 02/15/23 02/15/23 History estradiol 0.01% (0.1 mg/gram) See Rx Instructions .Route .COMPLEX 02/15/23 02/15/23 History vaginal cream ondansetron HCl 8 mg tablet 8 mg PO Q6H PRN Nausea/vomiting 02/15/23 02/15/23 History prednisone 20 mg tablet See Rx Instructions .Route .COMPLEX 02/15/23 02/15/23 History prochlorperazine maleate 10 mg 10 mg PO Q6H PRN Nausea/vomiting 02/15/23 02/15/23 History tablet Past Med/Surg History Medical History (Updated 02/15/23 @ 13:32 by Candis Rizo PA-C) Cat bite of hand Cervical lymphadenopathy CKD (chronic kidney disease), stage III Per records DJD (degenerative joint disease) Hyperlipemia Per records Hypertension Lymphoma B-cell Mass of right side of neck Osteoarthritis Surgical History History of appendectomy History of biopsy lymph node of neck History of bladder surgery repaired of prolapsed bladder with mesh History of cataract surgery left/right History of colonoscopy History of dilatation and curettage History of endometrial ablation History of total knee replacement left Port-A-Cath in place (01/27/23) Insertion Access Port with Fluoroscopy(Left) - John Chavira, , FACS Family History Mother Cancer Hypertension Other No family history of adverse response to anesthesia Social History Smoking Status: Never smoker Second Hand Exposure: No; Do You Dip or Chew Tobacco: No; Hx Alcohol Use: No Hx Substance Use: No Preferred Language: Kazakh Communication Ability: Effective 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 Beliefs That Will Affect Care: None marital status: Current Living Situation: Alone current occupational status: retired How many Children do You have: 5 Feels Safe at Home: Yes during the past year weight has: remained stable Assistive Devices: Glasses Review of Systems Review of Systems: All systems reviewed & are unremarkable except as noted in HPI & below Constitutional: + sweats and + fatigue Eyes: no diplopia and no worsening vision Ear, Nose, Mouth, Throat: no nasal congestion, no nasal discharge and no sore throat Respiratory: no cough and no dyspnea Cardiovascular: no chest pain, no palpitations, no lightheadedness and no syncope Gastrointestinal: as per Subjective / HPI; no diarrhea/loose stools and no blood in stools Genitourinary: no dysuria and no hematuria Musculoskeletal: no neck pain, no joint pain and no myalgia Integumentary: no rash and no yellowing of the skin Neurologic: no seizure-like activity, no dizziness and no headache(s) Psychiatric: no depression and no anxiety Physical Exam Constitutional: well developed and well nourished; no acute distress Eyes: + anicteric sclerae ENMT: external ear and nose normal, oropharynx normal Neck: trachea midline Respiratory: no respiratory distress and no labored breathing Auscultation: lungs clear to auscultation bilaterally; no rales, no rhonchi and no wheezes Cardiovascular: Rate/Rhythm: regular rhythm and + bradycardic Vessels: dorsalis pedis pulses present and radial pulses present Extremities: no pedal edema Gastrointestinal (Abdomen): Inspection/Auscultation: + abdomen distended (mildly) and normal bowel sounds Percussion/Palpation: + abdomen tender (lateral LUQ and left flank) and abdomen soft; no guarding Musculoskeletal: Head/Neck/Chest: normocephalic, head atraumatic and neck supple Skin: no jaundice Neurologic: moves all extremities; no focal motor deficits and not confused Psychiatric: A+Ox3, euthymic affect Results & Data Results & Data Vital Signs (Past 12 Hours) Vital Signs Temp Pulse Pulse Resp BP BP Pulse Ox 02/15/23 10:00 54 L 14 134/68 97 02/15/23 09:45 48 L 02/15/23 08:04 54 L 13 146/80 H 97 02/15/23 06:19 51 L 15 144/73 H 93 02/15/23 05:46 02/15/23 05:35 57 L 14 144/73 H 96 02/15/23 06:08 52 L 02/15/23 05:38 36.6 C 58 L 16 171/86 H 96 O2 Del Method 02/15/23 10:00 02/15/23 09:45 02/15/23 08:04 02/15/23 06:19 02/15/23 05:46 Room Air 02/15/23 05:35 02/15/23 06:08 02/15/23 05:38 Room Air Laboratory Results Laboratory Results - last 24 hr 02/15/23 02/15/23 02/15/23 06:15 06:15 06:15 WBC 9.79 RBC 4.21 Hgb 12.5 Hct 37.0 MCV 87.9 MCH 29.7 MCHC 33.8 RDW Std Deviation 45.9 RDW Coeff of Suleiman 14.4 Plt Count 276 MPV 10.7 Immature Gran % (Auto) 0.4 Neut % (Auto) 80.8 Lymph % (Auto) 12.8 [place] % (Auto) 5.2 Eos % (Auto) 0.7 Baso % (Auto) 0.1 Neut # (Auto) 7.91 H Lymph # (Auto) 1.25 [place] # (Auto) 0.51 Eos # (Auto) 0.07 Baso # (Auto) 0.01 Immature Gran # (Auto) 0.04 Sodium 135 L Potassium 3.6 Chloride 98 Carbon Dioxide 32 Anion Gap 5 BUN 32 H Creatinine 0.74 Est Cr Clr Drug Dosing 58.1 Est GFR ( Amer) 88.7 Est GFR (Non-Af Amer) 76.5 BUN/Creatinine Ratio 43.2 H Glucose 112 H Lactate 1.1 Calcium 9.0 Magnesium 1.9 Total Bilirubin 0.4 Direct Bilirubin 0.2 AST 17 ALT 29 Alkaline Phosphatase 75 Troponin I High Sens 2.7 Total Protein 6.8 Albumin 3.6 Lipase Procalcitonin Urine Color Urine Appearance Urine pH Ur Specific [place] Urine Protein Urine Glucose (UA) Urine Ketones Urine Blood Urine Nitrite Urine Bilirubin Urine Urobilinogen Ur Leukocyte Esterase Urine WBC (Auto) Urine RBC (Auto) U Hyaline Cast (Auto) U Epithel Cells (Auto) Urine Bacteria (Auto) SARS-CoV-2, RNA, NAAT 02/15/23 02/15/23 02/15/23 06:15 06:15 06:15 WBC RBC Hgb Hct MCV MCH MCHC RDW Std Deviation RDW Coeff of Suleiman Plt Count MPV Immature Gran % (Auto) Neut % (Auto) Lymph % (Auto) [place] % (Auto) Eos % (Auto) Baso % (Auto) Neut # (Auto) Lymph # (Auto) [place] # (Auto) Eos # (Auto) Baso # (Auto) Immature Gran # (Auto) Sodium Potassium Chloride Carbon Dioxide Anion Gap BUN Creatinine Est Cr Clr Drug Dosing Est GFR ( Amer) Est GFR (Non-Af Amer) BUN/Creatinine Ratio Glucose Lactate Calcium Magnesium Total Bilirubin Direct Bilirubin AST ALT Alkaline Phosphatase Troponin I High Sens Total Protein Albumin Lipase Pending Procalcitonin 0.06 Urine Color Yellow Urine Appearance Clear Urine pH 5.5 Ur Specific [place] 1.021 Urine Protein Negative Urine Glucose (UA) Negative Urine Ketones Negative Urine Blood Negative Urine Nitrite Negative Urine Bilirubin Negative Urine Urobilinogen Negative Ur Leukocyte Esterase Trace H Urine WBC (Auto) 1-5 Urine RBC (Auto) 0-4 U Hyaline Cast (Auto) 0 U Epithel Cells (Auto) 20-30 H Urine Bacteria (Auto) Negative SARS-CoV-2, RNA, NAAT 02/15/23 Unknown WBC RBC Hgb Hct MCV MCH MCHC RDW Std Deviation RDW Coeff of Suleiman Plt Count MPV Immature Gran % (Auto) Neut % (Auto) Lymph % (Auto) [place] % (Auto) Eos % (Auto) Baso % (Auto) Neut # (Auto) Lymph # (Auto) [place] # (Auto) Eos # (Auto) Baso # (Auto) Immature Gran # (Auto) Sodium Potassium Chloride Carbon Dioxide Anion Gap BUN Creatinine Est Cr Clr Drug Dosing Est GFR ( Amer) Est GFR (Non-Af Amer) BUN/Creatinine Ratio Glucose Lactate Calcium Magnesium Total Bilirubin Direct Bilirubin AST ALT Alkaline Phosphatase Troponin I High Sens Total Protein Albumin Lipase Procalcitonin Urine Color Urine Appearance Urine pH Ur Specific [place] Urine Protein Urine Glucose (UA) Urine Ketones Urine Blood Urine Nitrite Urine Bilirubin Urine Urobilinogen Ur Leukocyte Esterase Urine WBC (Auto) Urine RBC (Auto) U Hyaline Cast (Auto) U Epithel Cells (Auto) Urine Bacteria (Auto) SARS-CoV-2, RNA, NAAT NEGATIVE Diagnostic Findings Chest X-Ray 02/15/23 05:46 XR chest 1V portable HISTORY: 82 years-old Female Sepsis acute sepsis COMPARISON: 02/03/2023 TECHNIQUE: AP view of the chest FINDINGS: Cardiomediastinal and hilar silhouettes are unchanged. Left IJ [id number]-[id number] catheter appears to be in stable positioning. No pneumothorax, pleural effusion, airspace consolidation or pulmonary edema. Bones appear grossly intact. Degenerative changes of the shoulders and spine. IMPRESSION: No acute process. Abdomen/Pelvis CT 02/15/23 06:[address] WITH IV CONTRAST CT DOSE: 1139.72 mGy.cm HISTORY: Acute left-sided flank pain in a patient with history of lymphoma L flank pain TECHNIQUE: Multiaxial CT images of the abdomen and pelvis were performed following the IV administration of 94 cc of Optiray, A dose lowering technique was utilized adhering to the principles of ALARA. COMPARISON STUDY: PET/CT 02/03/2023, CT abdomen and pelvis 09/04/2021 FINDINGS: Mild cardiomegaly. Trace pericardial effusion. Clear lung bases. No pneumatosis or pneumoperitoneum. Unremarkable spleen, right adrenal gland, gallbladder and liver with scattered hepatic cysts. Patency of the hepatic and portal veins. Stable 2 cm soft tissue attenuating left adrenal gland lesion which is likely benign. There is mild interstitial and peripancreatic edema. No definite associated pancreatic ductal dilation or mass identified. 10 mm peripherally calcified structures in the abdominal left upper quadrant on image 77 series 3 suggestive of a splenic artery aneurysm. No peripancreatic fluid collections. Bilateral renal cysts are again noted including a 5.1 cm left-sided renal sinus cyst. Cortical thinning with areas of parenchymal scarring again noted within the left kidney. There are a few punctate nonobstructing calculi noted within the inferior pole left kidney. Symmetric enhancement of the kidneys with mild urothelial thickening of the left ureteropelvic junction. Unremarkable urinary bladder and uterus. Atherosclerosis of the aorta. No lymphadenopathy. Tiny hiatal hernia. No bowel obstruction or bowel wall thickening. Colonic diverticulosis. Moderate colonic fecal retention. No CT evidence of acute appendicitis. There are a few stool-filled loops of small bowel noted within the lower abdomen and pelvis. Bones appear intact. No acute fracture. IMPRESSION: 1. Mild acute interstitial edematous pancreatitis. 2. No acute peripancreatic fluid collections. 3. No pathologic lymphadenopathy identified. 4. Colonic diverticulosis. 5. Additional findings as above. Medications Administered Discontinued Medications Sodium Chloride (Nss 1000ml) 500 mls @ 999 mls/hr IV .Q31M ONE Stop: 02/15/23 07:29 Last Infusion: 02/15/23 08:05 Dose: 0 mls/hr Documented By: Admin: 02/15/23 07:21 Dose: 999 mls/hr Documented By: NOEL Ioversol (Optiray 320 100ml) 94 ml IV ONCE ONE Stop: 02/15/23 07:57 Last Admin: 02/15/23 07:57 Dose: 94 ml Documented By: LARY Morphine Sulfate (Morphine Sulfate 4 Mg/Ml 1 Ml Carp\Vial) 4 mg IV NOW STA Stop: 02/15/23 07:08 Last Admin: 02/15/23 07:17 Dose: 4 mg Documented By: NOEL Ondansetron HCl (Ondansetron Inj 2 Mg/Ml 2 Ml Vial) 4 mg IV NOW STA Stop: 02/15/23 07:08 Last Admin: 02/15/23 07:16 Dose: 4 mg Documented By: NOEL Supervising Physician Co-Signing Physician Notes Patient was seen and examined independently at bedside. Chart reviewed. Case discussed with Candis CABRERA and agree with the documentation above. In summary, this is a 82 year old female with h/o HTN, recent diagnosis of B cell lymphoma and started on R-CHOP 4 days back presented to the ED with sudden onset left flank pain overnight and admitted with acute pancreatitis as evidenced by CT imaging and lipase.. CT abdomen/pelvis with mild acute interstitial edematous pancreatitis. right upper quadrant ultrasound with no acute cholecystitis but 4 mm echogenic focus within the gallbladder-polyp favored versus gallstone. No new medication. No trauma. No other issues. Pain controlled with pain meds in ED. On exam, elderly female, lying comfortably in bed, not in acute distress. Chest clear, left-sided port noted, heart sounds normal, abd with mild left flank tenderness otherwise unremarkable, neuro nonfocal, no LE edema. Patient's acute pancreatitis likely related to her chemo medication. Oncology has been updated. Continue IVF, bowel rest, analgesics, GI eval. Consider advancing diet as tolerated tomorrow if continues to improve. Rest as per the note above. (1) Acute pancreatitis Acute pancreatitis complication: unspecified Pancreatitis type: other Qualified Code(s): K85.80 - Other acute pancreatitis without necrosis or infection
--- NOTE | 2023-02-15 11:30 | Electrocardiogram Report ---
Test Reason : Blood Pressure : / mmHG Vent. Rate : 053 BPM Atrial Rate : 053 BPM P-R Int : 156 ms QRS Dur : 084 ms QT Int : 422 ms P-R-T Axes : 049 001 028 degrees QTc Int : 395 ms Sinus bradycardia with Premature atrial complexes Nonspecific ST abnormality Anterolateral leads Abnormal ECG When compared with ECG of 05-SEP-2021 11:59, Premature atrial complexes are now Present Nonspecific ST abnormality now present Confirmed by Hussain Escobar ([id number]) on 02/15/2023 11:30:33 AM Referred By: Confirmed By:Hussain Escobar
[2023-02-15] MEDS ORDERED: HYDROmorphone INJ 0.5 MG/0.5 ML SYR IV PRN (13:24)
[2023-02-15] MEDS ORDERED: ONDANSETRON INJ 2 MG/ML 2 ML VIAL IV PRN (13:27)
--- NOTE | 2023-02-15 15:20 | Ultrasound Report ---
US liver CLINICAL HISTORY: Pancreatitis. COMPARISON STUDY: CT of the abdomen and pelvis February 15, 2023. FINDINGS: Liver morphology is normal. Multiple hepatic cysts are noted. A few echogenic hepatic lesio ns likely reflect hemangiomas. These correspond to stable liver lesions when comparing to earlier CT of September 04, 2021. There is no biliary ductal dilatation. The pancreas is partially obscured by cortney wel gas. Visualized portions of the pancreas appear heterogeneous. No peripancreatic fluid collection is present. There is no gallbladder wall thickening. There is a 4 mm echogenic focus within the gall bladder. There is no gallbladder wall thickening. There is no right hydronephrosis. A few right renal cysts are present. IMPRESSION: 1. 4 mm echogenic focus within the gallbladder. A polyp is favored however a gallstone could appear s imilar. No evidence for acute cholecystitis. 2. Heterogeneity of the pancreas, better depicted on CT performed earlier today. This is consistent w ith acute pancreatitis. 3. No biliary ductal dilatation. ACT 112: Negative or not required by law. Electronically signed by: Al Schaeffer M.D. 02/15/2023 3:19 PM
[2023-02-15] MEDS: SODIUM CHLORIDE 0.9% 1000ML 1,000 ML IV SCH (18:01)
[2023-02-15] MEDS ORDERED: oxyCODONE HCL IR 5 MG TAB (IMMEDIATE RELEASE) PO PRN (18:19)
[2023-02-15] MEDS: ACETAMINOPHEN 500 MG TAB PO PRN (18:25)
[2023-02-15] MEDS ORDERED: HEPARIN 100 UNIT/ML 5ML FLUSH FLUSH PRN (23:54)
[2023-02-16] MEDS: SODIUM CHLORIDE 0.9% 1000ML 1,000 ML IV SCH ×2 (01:55→10:10)
--- NOTE | 2023-02-16 08:15 | Gastrointestinal Consultation ---
Date of Consultation February 16, 2023 Assessment & Plan (1) Acute pancreatitis: Likely secondary to chemotherapy. Vincristine, cyclosporine and doxorubicin have all been associated with acute pancreatitis. There is no evidence of biliary obstruction and the pt denies increased alcohol intake. She is not a smoker. Triglycerides are only minimally elevated at 178. Plan 1. IV fluids. 2. Clear liquids po. 3. Consider change of chemotherapy meds. 4. OP EUS in approx 6 wks. 5. GI will sign off. Please notify us if new/worsening symptoms. Supervising Physician Co-Signing Physician Notes I saw and evaluated the patient. We were consulted for evaluation of pancreatitis. Of note the patient was on a recent course of chemotherapy for treatment of B-cell lymphoma. It appears that this could be a side effect of one of her medications which she is receiving. Patient notes that she is feeling much improved today she denies having nausea vomiting fevers or chills. Physical examination No abdominal noted today No scleral icterus Impression: Patient with a history of lymphoma on recent course of chemotherapy resulting in ileus. Would recommend continued IV hydration, as the patient was found to be today advance her to a liquid diet and perhaps a low residue diet starting tomorrow. With regard to preoperative studies we would recommend an outpatient endoscopic ultrasound to look for occult causes of pancreatitis such as pancreatic malignancies, or cholelithiasis not seen on imaging studies. With regard to chemotherapy I would suggest an evaluation by her medical oncology doctor to determine which agent was most likely to be the culprit particular case. Please call with any additional questions or concerns, GI to sign. History of Present Illness Reason for Consultation: Pancreatitis Requesting Physician: Nallely Rizo PA-C Attending Physician: Ya Shah MD History of Present Illness Ms. Jagruti Owens is an 82 yr old female pt of Dr. Jose L macario a hx of B-cell lymphoma who just started chemotherapy (R-CHOP doses on and Wednesday) who presented to the ED on this morning with severe left flank and lower chest pain. Lipase was elevated and CT suggested mild acute pancreatitis. Bile duct imaging and LFTs are normal. GI is consulted for pancreatitis. She experienced the abrupt onset of epigastric/left flank/mid back pain between the shoulder blades, waking her from sleep early on Wednesday morning. She had eaten a hamburg for dinner the evening before though typically eats a low fat/healthy diet. She has some nausea but no vomiting. She felt constipated but passed a small firm brown BM this morning. She does not drink alcohol (or very rare small amts). She has not had recurrent post prandial RUQ pain and has "never had pain like this before." She has been NPO w only chips and sips for >24 hrs and is hungry. She still has abdominal pain but it is much improved. Her Cr has remained normal. Allergies Allergy/AdvReac Type Severity Reaction Status Date / Time phenazopyridine [From Azo] Allergy Severe Anaphylaxis Verified 02/12/23 09:24 Home Medications Medication Instructions Recorded Confirmed Type atenolol 50 mg tablet 50 mg PO QAM 11/27/19 02/15/23 History hydrochlorothiazide 25 mg tablet 25 mg PO QAM 11/27/19 02/15/23 History rsoydvlx-lhyw-uobx 8 mg-folic 400 1 tab PO QAM 11/27/19 02/15/23 History mcg-K 50 mcg-lutein 300 mcg tablet (Centrum Silver Women) amlodipine 5 mg tablet 5 mg PO QAM 07/17/21 02/15/23 History benazepril 40 mg tablet 40 mg PO QAM 09/04/21 02/15/23 History rosuvastatin 20 mg tablet 20 mg PO QAM 12/15/22 02/15/23 History allopurinol 300 mg tablet 300 mg PO DAILY 02/15/23 02/15/23 History estradiol 0.01% (0.1 mg/gram) See Rx Instructions .Route .COMPLEX 02/15/23 02/15/23 History vaginal cream ondansetron HCl 8 mg tablet 8 mg PO Q6H PRN Nausea/vomiting 02/15/23 02/15/23 History prednisone 20 mg tablet See Rx Instructions .Route .COMPLEX 02/15/23 02/15/23 History prochlorperazine maleate 10 mg 10 mg PO Q6H PRN Nausea/vomiting 02/15/23 02/15/23 History tablet Patient History Medical History (Updated 02/15/23 @ 13:32 by Candis Rizo PA-C) Cat bite of hand Cervical lymphadenopathy CKD (chronic kidney disease), stage III Per records DJD (degenerative joint disease) Hyperlipemia Per records Hypertension Lymphoma B-cell Mass of right side of neck Osteoarthritis Surgical History History of appendectomy History of biopsy lymph node of neck History of bladder surgery repaired of prolapsed bladder with mesh History of cataract surgery left/right History of colonoscopy History of dilatation and curettage History of endometrial ablation History of total knee replacement left Port-A-Cath in place (01/27/23) Insertion Access Port with Fluoroscopy(Left) - John Chavira, , FACS Family History Mother Cancer Hypertension Other No family history of adverse response to anesthesia Social History Smoking Status: Never smoker Second Hand Exposure: No; Do You Dip or Chew Tobacco: No; Tobacco Cessation Education Requested by Patient: No Hx Alcohol Use: No Hx Substance Use: No Preferred Language: Occitan Communication Ability: Effective Mushroom Farmer Required: No Beliefs That Will Affect Care: None marital status: Current Living Situation: Spouse current occupational status: retired How many Children do You have: 5 Other Information That Helps Us Care for You: No Feels Safe at Home: Yes Safety Concerns: Feels Safe At This Time during the past year weight has: remained stable Assistive Devices: Cane Review of Systems Review of Systems: ROS: Gen: Denies weakness, fevers, weight loss Eyes: No eye redness, or pain, no recent vision changes Resp: No SOB, no cough Cardio: No palpitations/irregular beats, no chest pain GI: As per HPI, otherwise normal : Denies pain on urination Skin: No jaundice, itching or new rashes Physical Exam Constitutional: WD/WN, vitals as above Eyes: PERRL, conjunctivae normal, anicteric sclerae ENMT: external ear and nose normal, oropharynx normal Neck: trachea midline, no thyromegaly Respiratory: normal respiratory effort, lungs clear to auscultation Cardiovascular: RRR, no murmur, no edema Gastrointestinal (Abdomen): Inspection/Auscultation: abdomen normal to inspection and + hypoactive bowel sounds; abdomen not distended Percussion/Palpation: + abdomen tender (with deep palpation of the epigastric and LUQ quads. ) and abdomen soft Musculoskeletal: no cyanosis or clubbing, extremities motor strength 5/5 Skin: no rashes, warm and dry Neurologic: PERRL, EOMI, accommodation nl, no face palsy, no dysarthria Psychiatric: A+Ox3, euthymic affect Lymphatic: no cervical or axillary lymphadenopathy Results & Data Vital Signs (Past 12 Hours) Vital Signs Temp Pulse Resp BP Pulse Ox O2 Del Method 02/16/23 07:37 36.8 C 66 16 151/80 H 93 Room Air 02/15/23 20:21 36.6 C 60 18 146/75 H 96 Room Air Laboratory Results WBC 7.17, Hb 12.8, Hct 38, Plts 255, Na 135, K 3.6, Cl 98m CO2 32, BUN 5, Cr 3.2, glucose 112. LFTs normal. Lipase 1484. Diagnostic Findings Liver US 02/15/23: 1. 4 mm echogenic focus within the gallbladder. A polyp is favored however a g allstone could appear similar. No evidence for acute cholecystitis. 2. Heterogeneity of the pancreas, better depicted on CT performed earlier today. This is consistent with acute pancreatitis. 3. No biliary ductal dilatation. CTAP w IV 02/15/23: 1. Mild acute interstitial edematous pancreatitis. 2. No acute peripancreatic fluid collections. 3. No pathologic lymphadenopathy identified. 4. Colonic diverticulosis. 5. Additional findings as above. (1) Acute pancreatitis Acute pancreatitis complication: unspecified Pancreatitis type: other Qualified Code(s): K85.80 - Other acute pancreatitis without necrosis or infection
[2023-02-16 08:16] LABS: Basophils # (auto) 0.01 K/uL (0-0.2); Basophils % (auto) 0.1 %; Eosinophils # (auto) 0.18 K/uL (0-0.50); Eosinophils % (auto) 2.5 %; Hematocrit (blood only) 38.7 % (37.0-47.0); Hemoglobin 12.8 g/dl (12.0-16.0); Immature Granulocytes # (auto) 0.03 K/uL (0.01-0.20); Immature Granulocytes % (auto) 0.4 %; Lymphocytes # (auto) 0.91 K/uL (1.2-3.4); Lymphocytes % (auto) 12.7 %; Mean Corpuscular Hemoglobin 29.4 pg (25.0-34.0); Mean Corpuscular Hgb Conc 33.1 g/dL (32.0-36.0); Mean Corpuscular Volume 88.8 fL (80.0-100.0); Mean Platelet Volume 10.2 fL (9.4-12.4); Monocytes # (auto) 0.22 K/uL (0.11-0.59); Monocytes % (auto) 3.1 %; Neutrophils # (auto) 5.82 K/uL (1.40-6.50); Neutrophils % (auto) 81.2 %; Platelet Count 255 K/uL (130-400); RDW Coefficient of Variation 14.4 % (11.5-14.5); RDW Standard Deviation 47.3 fL (36.4-46.3); Red Blood Count 4.36 M/uL (4.20-5.40); White Blood Count 7.17 K/ul (4.8-10.8)
[2023-02-16] MEDS: ENOXAPARIN INJ 40 MG/0.4 ML SYR SQ SCH (08:51)
[2023-02-16] MEDS: ATENOLOL 50 MG TABLET PO SCH (08:52)
[2023-02-16] MEDS: allopurinoL 300 MG TAB PO SCH (08:52)
[2023-02-16] MEDS: amLODIPine BESYLATE 5 MG TAB PO SCH (08:52)
[2023-02-16] MEDS: ROSUVASTATIN CALCIUM 20 MG TAB PO SCH (08:52)
[2023-02-16] MEDS: ENALAPRIL MALEATE 10 MG TAB PO SCH (08:52)
[2023-02-16 08:53] LABS: Albumin Level 3.5 gm/dl (3.4-5.0); BUN Creatinine Ratio 26.8 (10-20); Bilirubin Direct 0.2 mg/dl (0-0.2); Bilirubin,Total 0.6 mg/dl (0.2-1.0); Calcium 8.7 mg/dl (8.6-10.3); Chol HDL Ratio 1.9 (0-5); Creatinine Clr Calc Pharmacy 64.4 ml/min; Est GFR (African American) 93.2 ml/min; Est GFR (Non-African American) 80.4 ml/min; Magnesium 1.8 mg/dl (1.7-2.4); Total Protein 6.5 gm/dl (6.0-8.3)
[2023-02-16] MEDS: LACTATED RINGER'S 1,000 ML IV SCH ×3 (12:23→23:52)
--- NOTE | 2023-02-16 18:42 | Hospitalist Progress Note ---
Date of Service February 16, 2023 Assessment & Plan (1) Acute pancreatitis: Plan: This is an 82 y/o female recently diagnosed with B-cell lymphoma who just started chemotherapy four days prior to admission who presented to the ED with abrupt onset of severe left flank/left thoracic pain. Work-up in the ED revealed a lipase >[address] with mild acute interstitial edematous pancreatitis. Pt was symptomatically improved after receiving IV morphine, Zofran and fluids but symptoms were slowly recurring and etiology of pancreatitis is not entirely clear so pt was referred for admission. Case discussed with pt's oncologist - while some of her chemo drugs do have case reports of pancreatitis, it would be a rare adverse effect so she recommended work-up for other causes as well. Pt is also on HCTZ, which has been associated with pancreatitis. Patient much improved this AM. Lipase improved to 140 Evaluated by GI, pancreatitis likely secondary to recent initiation of chemotherapy No evidence of biliary obstruction, triglycerides minimally elevated at 178, no history of alcohol use Advance diet to clears Continue IVF, pain and nausea control Outpatient EUS in 6 weeks as per GI (2) B-cell lymphoma: Plan: Recently started chemotherapy Follows with Dr. Holm (3) Hypertension: Plan: BP controlled, continue amlodipine, atenolol, and enalapril (4) Hyperlipemia: Plan: Continue statin DVT PROPHYLAXIS SQ Lovenox Patient seen in collaboration with Dr. Shah. Admission and Anticipated Discharge Date Admission Date: February 15, 2023 Supervising Physician Co-Signing Physician Notes Attending addendum: The patient was seen and examined in medical floor She has been feeling much better and the abdominal pain is controlled Denies any nausea and or vomiting and tolerating advance diet On examination Remains hemodynamically stable Chestclear to auscultate bilaterally HeartS1-S2, regular Abdomenbenign, minimal tenderness in the epigastrium Extremities trace edema bilaterally Her labs, medications and imaging studies reviewed Acute pancreatitis secondary to chemotherapy for lymphoma Agree with assessment and plan as outlined above by Phyllis Shah Subjective Follow-up for pancreatitis. Patient seen and examined. Reports she is feeling much better. No further abdominal pain. Denies nausea. No chest pain or shortness of breath. Physical Exam Constitutional: WD/WN, vitals as above Respiratory: normal respiratory effort, lungs clear to auscultation Cardiovascular: Rate/Rhythm: regular rate and regular rhythm Vessels: normal peripheral pulses Extremities: no edema Gastrointestinal (Abdomen): Percussion/Palpation: abdomen soft; abdomen nontender Skin: no rashes, warm and dry Neurologic: no focal motor deficits Psychiatric: A+Ox3, euthymic affect Results & Data Results & Data Vital Signs (Past 12 Hours) Vital Signs Temp Pulse Pulse Resp BP Pulse Ox O2 Del Method 02/16/23 14:51 37 C 56 L 16 123/71 94 Room Air 02/16/23 07:37 36.8 C 66 16 151/80 H 93 Room Air Laboratory Results Short CBC 02/16/23 Range/Units 07:47 WBC 7.17 (4.8-10.8) K/ul Hgb 12.8 (12.0-16.0) g/dl Hct 38.7 (37.0-47.0) % Plt Count 255 (130-400) K/uL BMP 02/16/23 07:47 Sodium 137 Potassium 4.0 Chloride 102 Carbon Dioxide 30 BUN 19 Creatinine 0.71 Glucose 99 Calcium 8.7 Liver Function 02/16/23 Range/Units 07:47 Total Bilirubin 0.6 (0.2-1.0) mg/dl Direct Bilirubin 0.2 (0-0.2) mg/dl AST 13 (13-39) U/L ALT 19 (7-52) U/L Alkaline Phosphatase 56 (34-104) U/L Albumin 3.5 (3.4-5.0) gm/dl (1) Acute pancreatitis Acute pancreatitis complication: unspecified Pancreatitis type: other Qualified Code(s): K85.80 - Other acute pancreatitis without necrosis or infection
[2023-02-16] MEDS: ACETAMINOPHEN 500 MG TAB PO PRN (23:53)
[2023-02-17] MEDS: LACTATED RINGER'S 1,000 ML IV SCH ×4 (05:13→22:39)
[2023-02-17] MEDS: ENOXAPARIN INJ 40 MG/0.4 ML SYR SQ SCH (08:21)
[2023-02-17] MEDS: ROSUVASTATIN CALCIUM 20 MG TAB PO SCH (08:21)
[2023-02-17] MEDS: ATENOLOL 50 MG TABLET PO SCH (08:22)
[2023-02-17] MEDS: ENALAPRIL MALEATE 10 MG TAB PO SCH (08:25)
[2023-02-17] MEDS: allopurinoL 300 MG TAB PO SCH (08:25)
[2023-02-17] MEDS: amLODIPine BESYLATE 5 MG TAB PO SCH (08:25)
[2023-02-17 08:47] LABS: Albumin Globulin Ratio 1.1 (0.9-2); BUN Creatinine Ratio 20.9 (10-20); Bilirubin,Total 0.6 mg/dl (0.2-1.0); Calcium 8.6 mg/dl (8.6-10.3); Creatinine Clr Calc Pharmacy 68.3 ml/min; Est GFR (African American) 96.2 ml/min; Globulin 2.8 gm/dl (2.5-4.0); Potassium 3.8 mmol/L (3.5-5.1); Total Protein 5.8 gm/dl (6.0-8.3)
[2023-02-17] MEDS: DOCUSATE SODIUM 100 MG CAP PO SCH ×2 (13:00→21:26)
[2023-02-17] MEDS: POLYETHYLENE (MIRALAX) 17 GM PACK PO SCH ×2 (13:00→21:26)
--- NOTE | 2023-02-17 14:12 | Hospitalist Progress Note ---
Date of Service February 17, 2023 Assessment & Plan (1) Acute pancreatitis: Plan: This is an 82 y/o female recently diagnosed with B-cell lymphoma who just started chemotherapy four days prior to admission who presented to the ED with abrupt onset of severe left flank/left thoracic pain. Work-up in the ED revealed a lipase >[address] with mild acute interstitial edematous pancreatitis. Pt was symptomatically improved after receiving IV morphine, Zofran and fluids but symptoms were slowly recurring and etiology of pancreatitis is not entirely clear so pt was referred for admission. Case discussed with pt's oncologist - while some of her chemo drugs do have case reports of pancreatitis, it would be a rare adverse effect so she recommended work-up for other causes as well. Pt is also on HCTZ, which has been associated with pancreatitis. Continues to improve, will advance diet to full liquids today and if patient tolerates, will advance to regular diet for dinner. Likely DC home tomorrow. Lipase improved to 140 Evaluated by GI, pancreatitis likely secondary to recent initiation of chemotherapy No evidence of biliary obstruction, triglycerides minimally elevated at 178, no history of alcohol use Continue IVF, pain and nausea control Outpatient EUS in 6 weeks as per GI Constipation Bowel regimen added (2) B-cell lymphoma: Plan: Recently started chemotherapy Follows with Dr. Holm (3) Hypertension: Plan: BP controlled, continue amlodipine, atenolol, and enalapril HCTZ being held due to pancreatitis (4) Hyperlipemia: Plan: Continue statin DVT PROPHYLAXIS SQ Lovenox Patient seen in collaboration with Dr. Tatum. Admission and Anticipated Discharge Date Admission Date: February 15, 2023 Supervising Physician Co-Signing Physician Notes Patient seen independently. Chart reviewed. Case discussed with SERENE Subjective Follow-up for pancreatitis. Patient seen and examined. Patient reports minimal pain. Tolerating clear liquid diet. States she feels constipated. No abdominal pain or nausea. Denies chest pain or shortness of breath. Physical Exam Constitutional: WD/WN, vitals as above no acute distress Respiratory: normal respiratory effort, lungs clear to auscultation Cardiovascular: Rate/Rhythm: regular rate and regular rhythm Vessels: normal peripheral pulses Extremities: no edema Gastrointestinal (Abdomen): Percussion/Palpation: abdomen soft; abdomen nontender Skin: no rashes, warm and dry Neurologic: no focal motor deficits Psychiatric: A+Ox3, euthymic affect Results & Data Results & Data Vital Signs (Past 12 Hours) Vital Signs Temp Pulse Resp BP Pulse Ox O2 Del Method 02/17/23 07:02 36.7 C 52 L 16 127/72 94 Room Air Laboratory Results [facility] 02/17/23 08:11 Sodium 138 Potassium 3.8 Chloride 104 Carbon Dioxide 31 BUN 14 Creatinine 0.67 Glucose 102 H Calcium 8.6 Liver Function 02/17/23 Range/Units 08:11 Total Bilirubin 0.6 (0.2-1.0) mg/dl AST 12 L (13-39) U/L ALT 15 (7-52) U/L Alkaline Phosphatase 44 (34-104) U/L Albumin 3.0 L (3.4-5.0) gm/dl (1) Acute pancreatitis Acute pancreatitis complication: unspecified Pancreatitis type: other Qualified Code(s): K85.80 - Other acute pancreatitis without necrosis or infection
[2023-02-18] MEDS: LACTATED RINGER'S 1,000 ML IV SCH ×2 (04:05→09:23)
[2023-02-18 07:27] LABS: Albumin Globulin Ratio 1.1 (0.9-2); BUN Creatinine Ratio 21.6 (10-20); Bilirubin,Total 0.3 mg/dl (0.2-1.0); Calcium 8.5 mg/dl (8.6-10.3); Creatinine Clr Calc Pharmacy 61.8 ml/min; Est GFR (African American) 88.7 ml/min; Est GFR (Non-African American) 76.5 ml/min; Globulin 2.8 gm/dl (2.5-4.0); Potassium 3.9 mmol/L (3.5-5.1); Total Protein 5.8 gm/dl (6.0-8.3)
[2023-02-18] MEDS: amLODIPine BESYLATE 5 MG TAB PO SCH (08:16)
[2023-02-18] MEDS: DOCUSATE SODIUM 100 MG CAP PO SCH (08:16)
[2023-02-18] MEDS: ENALAPRIL MALEATE 10 MG TAB PO SCH (08:16)
[2023-02-18] MEDS: ROSUVASTATIN CALCIUM 20 MG TAB PO SCH (08:16)
[2023-02-18] MEDS: allopurinoL 300 MG TAB PO SCH (08:16)
[2023-02-18] MEDS: ATENOLOL 50 MG TABLET PO SCH (08:16)
[2023-02-18] MEDS: ENOXAPARIN INJ 40 MG/0.4 ML SYR SQ SCH (08:17)
[2023-02-18] MEDS: POLYETHYLENE (MIRALAX) 17 GM PACK PO SCH (08:17)
--- NOTE | 2023-02-18 11:03 | Discharge Summary ---
Date of Service February 18, 2023 Admission HPI Per Admitting Provider This is an 82 y/o female with history of HTN, hyperlipidemia, CKD3, left hydronephrosis, and recently diagnosed B-cell lymphoma who presented to the ED for severe left flank pain. She reports that she was woken up around 12:30 am today by pain in left flank/thoracic area - describes as a deep ache with associated abdominal discomfort/bloating and nausea. No vomiting. Pain has gradually increased in severity. Pt has a history of issues with left kidney so initially attributed to this but has not had similar pain previously. Unable to find a comfortable position. Due to pain's severity and worsening, she thought it best to come to the ED for evaluation. Initially pain was 8/10 on arrival but improved with pain meds to 3/10. Now seems to be slowly worsening again. She has not eaten yet today or taken any medications. Last BM was today around 5:30 am and was normal for her. Denies melena or hematochezia. No urinary changes. No prior history of pancreatitis. Of note, she started chemo with R- CHOP mini on of last week. She has overall felt well until today after her first dose of chemo. Has not required the anti-emetics. Energy level has been good - able to keep up with usual activity level. Appetite has been good - reports feeling hungry at present. Last meal was dinner yesterday - hamburger, [id number]-cob, broccoli salad, and strawberry shortcake. Tried some Ritz crackers for the pain but didn't help. Principal Diagnosis Acute pancreatitis Discharge Exam On day of discharge, patient tolerated breakfast (scrambled eggs and toast), also tolerated dinner the night before She is ambulating in room independently. Pain has completely resolved Breathing comfortably on room air Discharge Data Allergies Allergy/AdvReac Type Severity Reaction Status Date / Time phenazopyridine [From Azo] Allergy Severe Anaphylaxis Verified 02/12/23 09:24 Consultations 02/15/23 10:49 ED Decision to Admit Stat 02/15/23 13:37 Consult Gastroenterology Routine Ordered Studies 02/15/23 06:58 CT Abd and Pelvis [CT abd pelvis IV con only] Stat 02/15/23 13:25 US RUQ [US liver] Urgent Hospital Course (1) Acute pancreatitis: This is an 82 y/o female recently diagnosed with B-cell lymphoma who just started chemotherapy four days prior to admission who presented to the ED with abrupt onset of severe left flank/left thoracic pain. Work-up in the ED revealed a lipase >[address] with mild acute interstitial edematous pancreatitis. Patient was symptomatically improved after receiving IV morphine, Zofran and fluids. Case was discussed with patient's oncologist admitting team - while some of her chemotherapy drugs do have case reports of pancreatitis, it would be a rare adverse effect so she recommended work-up for other causes as well. Patient is also on HCTZ, which has been associated with pancreatitis. Patient was seen by GI here and felt her pancreatitis was likely triggered by her recent chemotherapy. However, plan for outpatient EGD with EUS to evaluate further. At the time of discharge she was tolerating a low fat diet. (2) B-cell lymphoma: Recently started chemotherapy Follows with Dr. Holm (3) Hypertension: Blood pressure controlled on amlodipine, atenolol, and enalapril HCTZ discontinued due to pancreatitis. Patient instructed to follow up with her PCP in 2 weeks for blood pressure management (4) Hyperlipemia: Total Time Total Time Spent Total Time Spent (In Minutes): 35 Discharge Plan Discharge Items Patient Disposition: Home - Self-Care Reason For Visit: PANCREATITIS Discharge Diagnosis: Acute pancreatitis Condition on Discharge: Good Activity: Resume your previous activity Non-emergency contact: Primary Care Provider and Scientific Aide Call non-emergency contact if: your symptoms worsen Follow-up/Referrals: Jose L Fuller DO [Primary Care Provider] - (Date & Time 02/23/2023 11:00 AM Provider Jose L Fuller DO Department [facility] ) Diet: Heart Healthy Diet Comment: Slowly advance to a heart healthy diet Addtl Attending Provider Instructions: Re-introduce food slowly Avoid fatty, greasy food Avoid fibrous food for the next couple of days If pain recurs, can take tylenol as needed. If pain is severe, can take oxycodone 2.5mg and call your Primary Care Doctor for further instructions If you have nausea/vomiting/fever/chills, weakness, confusion--> please return to ER Your Hydrochlorothiazide was discontinued. In rare instances, it may cause pancreatitis Please follow up with your primary care doctor in 1-2 weeks for monitoring of your blood pressure and management Pending Studies at Discharge: No Stand-Alone Forms: My [facility], Smoking Cessation Medications and DC Order Prescriptions: New polyethylene glycol 3350 [Miralax] 17 gram Powder In Packet 17 g PO DAILY PRN (Reason: constipation) 3 Days Qty: 7 0RF oxycodone 5 mg Tablet 2.5 mg PO Q8H PRN (Reason: pain) 3 Days Qty: 3 0RF Continued atenolol 50 mg tablet 50 mg PO QAM Centrum Silver Women 8 mg iron-400 mcg-300 mcg Tablet 1 tab PO QAM benazepril 40 mg tablet 40 mg PO QAM ondansetron HCl 8 mg Tablet 8 mg PO Q6H PRN (Reason: Nausea/vomiting) prochlorperazine maleate 10 mg Tablet 10 mg PO Q6H PRN (Reason: Nausea/vomiting) prednisone 20 mg tablet See Rx Instructions .ROUTE .COMPLEX Rx Instructions: Using per oncology recommendations allopurinol 300 mg tablet 300 mg PO DAILY estradiol 0.01 % (0.1 mg/gram) cream See Rx Instructions .ROUTE .COMPLEX Rx Instructions: APPLY PEA SIZED AMOUNT (0.5 GM) VAGINALLY EVERY OTHER NIGHT. amlodipine 5 mg Tablet 5 mg PO QAM rosuvastatin 20 mg tablet 20 mg PO QAM Discontinued hydrochlorothiazide 25 mg tablet 25 mg PO QAM Discharge Orders: Discharge Order (Routine); Ordered 02/18/23 Ordered By: Tito Burrell/Other Patient Handouts: Pancreatitis Acute Dc Admission Data Admit Date/Time: 02/17/23 14:09 Attending Provider: Tito Tatum Admit Provider: Deyvi Bonilla Primary Care Provider: Jose L Fuller Other Providers: Deyvi Bonilla ; Jose Lyman ; Ya Shah
== END 2023-02-18 13:28 | disposition home or self-care (01) | DRG 439 ==
LOC: 3W 05:34 → ED 05:34 → SUATTDRO 11:41 → 3W 15:14